=== PATIENT | male | born 1985 | race Caucasian/White ===

== ENCOUNTER 2016-09-16 15:42 | Emergency (ER) | payer MEDICAID ==
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
[2016-09-16 16:29] LABS: % IMMATURE GRANULYOCYTES 0.4 % (0.0-1.1); ABSOLUTE IMMATURE GRANULOCYTES 0.04 10^3/uL (0.00-0.10); ADD DIFF? NO; ADD MORPH? NO; ADD SCAN? NO; ATYPICAL LYMPHOCYTE FLAG 10 (0-99); FRAGMENT RBC FLAG 0 (0-99); HEMATOCRIT 50.8 % (40.0-51.0); HEMOGLOBIN 18.2 g/dL (13.7-17.5); LEFT SHIFT FLG 0 (0-99); LIPEMIA HEMOLYSIS FLAG 90 (0-99); MEAN CELL HEMOGLOBIN 33.6 pg (27.9-34.1); MEAN CELL HEMOGLOBIN CONCENTR. 35.8 g/dL (32.4-36.7); MEAN CELL VOLUME 93.9 fL (81.5-99.8); MEAN PLATELET VOLUME 10.4 fL (8.7-11.7); PLATELET CLUMPS FLAG 10 (0-99); PLATELET COUNT 298 10^3/uL (150-400); RED BLOOD CELL COUNT 5.41 10^6/uL (4.40-6.38); RED CELL DISTRIBUTION WIDTH 12.6 % (11.5-15.2)
[2016-09-16 16:42] LABS: ANION GAP 19 mEq/L (8-16); CALCIUM 10.7 mg/dL (8.5-10.4); CARBON DIOXIDE 22 mEq/l (22-31); CHLORIDE 100 mEq/L (97-110); CREATININE 0.9 mg/dL (0.7-1.3); ETHANOL SERUM < 10 mg/dL (0-10); GLOMERULAR FILTRATION RATE > 60; GLUCOSE 81 mg/dL (70-100); POTASSIUM 3.9 mEq/L (3.5-5.2); SODIUM 141 mEq/L (134-144)
[2016-09-16] MEDS ORDERED: LORazepam 1 MG TAB PO ONE (16:50)
[2016-09-16 23:34] VITALS: BP 101/60; RESP 14
[2016-09-17 03:35] VITALS: PULSE 61; TEMP 97.9; O2SAT 98
== END 2016-09-17 03:35 ==
DX: F23 Brief psychotic disorder (principal); F17.200 Nicotine dependence, unspecified, uncomplicated
CPT/HCPCS: 80305; G0480

== ENCOUNTER 2016-09-30 14:39 | Emergency (ER) | payer MEDICAID ==
[2016-09-30 14:47] VITALS: TEMP 100
--- NOTE | 2016-09-30 14:55 | CPEKG ---
Heart Rate: 78 RR Interval: 769 P-R Interval: 160 QRSD Interval: 94 QT Interval: 384 QTC Interval: 438 P Grundy: 51 QRS Grundy: 73 T Wave Grundy: 69 EKG Severity - NORMAL ECG - EKG Impression: SINUS RHYTHM Electronically Signed By: Anthony Osman 30-Sep-2016 15:30:48
--- NOTE | 2016-09-30 15:07 | EDPHY ---
H & P Stated Complaint: "chest pressure and palpatations" anxiety, sent by [facility] Time Seen by Provider: 09/30/16 14:51 HPI/ROS: CHIEF COMPLAINT: Chest pressure and anxiety HISTORY OF PRESENT ILLNESS: This is a 31-year-old male presenting to the emergency room complaining of chest pressure and palpitations. Patient states he had a panic attack yesterday starting around 1500, with constant chest pressure which has become intermittent now. Stated he took a walk this morning during this time chest pressure had intensified, pressure is not constant nail but intermittent. Patient states that he was having a difficult conversation with his therapist yesterday and this is what brought on the panic attack. Patient states he started Respiradol this week. Denies any drugs or alcohol REVIEW OF SYSTEMS: Constitutional: No fever chills Eyes: No vision changes ENT: No sore throat Respiratory: Intermittent shortness of breath Cardiac: Chest pressure Gastrointestinal: No nausea vomiting Musculoskeletal: No back pain Skin: No rash Neurological: No headache or dizziness Source: Patient - Personal History Current Tetanus Diphtheria and Acellular Pertussis (TDAP): Yes Tetanus Vaccine Date: 2007 - Medical/Surgical History Hx Asthma: No Hx Chronic Respiratory Disease: No Hx Diabetes: No Hx Cardiac Disease: No Hx Renal Disease: No Hx Cirrhosis: No Hx Alcoholism: No Hx HIV/AIDS: No Hx Splenectomy or Spleen Trauma: No Other PMH: chronic anxiety, bipolar. - Social History Smoking Status: Current every day smoker - Physical Exam Exam: General Appearance: Alert, no distress. Eyes: Pupils equal and round no pallor or injection. ENT, Mouth: Mucous membranes moist. Respiratory: There are no retractions, lungs are clear to auscultation. Cardiovascular: Regular rate and rhythm. Gastrointestinal: Abdomen is soft and nontender, no masses, bowel sounds normal. Neurological: No focal deficits Skin: Warm and dry, no rashes. Musculoskeletal: Neck is supple nontender. Extremities: symmetrical, full range of motion. Psychiatric: Patient is oriented X 3, there is no agitation. Constitutional: Initial Vital Signs Temperature (C) 37.8 C 09/30/16 14:41 Heart Rate 91 09/30/16 14:41 Respiratory Rate 14 09/30/16 14:41 Blood Pressure 104/66 09/30/16 14:41 O2 Sat (%) 97 09/30/16 14:41 O2 Delivery Mode Room Air Allergies/Adverse Reactions: Sulfa (Sulfonamide Antibiotics) Allergy (Verified 09/16/16 15:57) Home Medications: Medication Instructions Recorded LORazepam [Ativan (*)] 0.5 - 1 mg PO Q4 PRN #30 tab 06/01/15 [place] Carbonate [[place] 300 mg PO DAILY #30 cap 06/01/15 Carbonate Cap 300 mg (*)] [place] Carbonate [[place] 600 mg PO HS #60 cap 06/01/15 Carbonate Cap 300 mg (*)] OLANZapine [ZyPREXA 2.5 mg (*)] 15 mg PO HS #30 tab 06/01/15 Latuda 09/16/16 Medical Decision Making ED Course/Re-evaluation: Discussed plan of care: EKG, CBC, Chem 7, troponin, lithium level 1545: Discussed all results with patient, lithium level is subtherapeutic patient has increased his dose this week per therapist 1600: Discharge home---> stable, discussed discharge instructions with patient Differential Diagnosis: Differential diagnosis considered but not limited to [place], abnormal EKG, and suicidal ideation - Data Points Laboratory Results: Laboratory Results 09/30/16 15:10 09/30/16 15:10 09/30/16 09/30/16 15:10 15:10 WBC 7.82 10^3/uL 10^3/uL (3.80-9.50) RBC 4.30 10^6/uL L 10^6/uL (4.40-6.38) Hgb 14.2 g/dL g/dL (13.7-17.5) Hct 41.2 % % (40.0-51.0) MCV 95.8 fL fL (81.5-99.8) MCH 33.0 pg pg (27.9-34.1) MCHC 34.5 g/dL g/dL (32.4-36.7) RDW 13.0 % % (11.5-15.2) Plt Count 259 10^3/uL 10^3/uL (150-400) MPV 9.5 fL fL (8.7-11.7) Neut % (Auto) 64.8 % % (39.3-74.2) Lymph % (Auto) 26.6 % % (15.0-45.0) Garza % (Auto) 5.5 % % (4.5-13.0) Eos % (Auto) 2.3 % % (0.6-7.6) Baso % (Auto) 0.5 % % (0.3-1.7) Nucleat RBC Rel Count 0.0 % % (0.0-0.2) Absolute Neuts (auto) 5.07 10^3/uL 10^3/uL (1.70-6.50) Absolute Lymphs (auto) 2.08 10^3/uL 10^3/uL (1.00-3.00) Absolute Monos (auto) 0.43 10^3/uL 10^3/uL (0.30-0.80) Absolute Eos (auto) 0.18 10^3/uL 10^3/uL (0.03-0.40) Absolute Basos (auto) 0.04 10^3/uL 10^3/uL (0.02-0.10) Absolute Nucleated RBC 0.00 10^3/uL 10^3/uL (0-0.01) Immature Gran % 0.3 % % (0.0-1.1) Immature Gran # 0.02 10^3/uL 10^3/uL (0.00-0.10) Sodium 142 mEq/L mEq/L (134-144) Potassium 3.8 mEq/L mEq/L (3.5-5.2) Chloride 107 mEq/L mEq/L (97-110) Carbon Dioxide 25 mEq/l mEq/l (22-31) Anion Gap 10 mEq/L mEq/L (8-16) BUN 14 mg/dL mg/dL (7-23) Creatinine 0.7 mg/dL mg/dL (0.7-1.3) Estimated GFR > 60 Glucose 83 mg/dL mg/dL (70-100) Calcium 9.5 mg/dL mg/dL (8.5-10.4) Troponin I < 0.012 ng/mL ng/mL (0-0.034) [place] 0.5 mEq/L L mEq/L (0.6-1.2) Departure - Departure Disposition: Home, Routine, Self-Care Clinical Impression: Panic attack as reaction to stress Condition: Good Instructions: Panic Attack (ED) Additional Instructions: 1. Your lithium level today was 0.5 today, it will take a while for your level to come up since you have increased her dose 2. When you feel you are in a stressful environment step away from the triggered attempt calming relaxation 3. Follow up with her therapist tomorrow Referrals: NONE *PRIMARY CARE P,. [Primary Care Provider] - As per Instructions [facility],. [Clinic] - As per Instructions
[2016-09-30 15:29] LABS: % IMMATURE GRANULYOCYTES 0.3 % (0.0-1.1); ABSOLUTE IMMATURE GRANULOCYTES 0.02 10^3/uL (0.00-0.10); ADD DIFF? NO; ADD MORPH? NO; ADD SCAN? NO; ANION GAP 10 mEq/L (8-16); ATYPICAL LYMPHOCYTE FLAG 20 (0-99); CALCIUM 9.5 mg/dL (8.5-10.4); CARBON DIOXIDE 25 mEq/l (22-31); CHLORIDE 107 mEq/L (97-110); CREATININE 0.7 mg/dL (0.7-1.3); FRAGMENT RBC FLAG 30 (0-99); GLOMERULAR FILTRATION RATE > 60; GLUCOSE 83 mg/dL (70-100); HEMATOCRIT 41.2 % (40.0-51.0); HEMOGLOBIN 14.2 g/dL (13.7-17.5); LEFT SHIFT FLG 0 (0-99); LIPEMIA HEMOLYSIS FLAG 90 (0-99); LITHIUM 0.5 mEq/L (0.6-1.2); MEAN CELL HEMOGLOBIN CONCENTR. 34.5 g/dL (32.4-36.7); MEAN CELL VOLUME 95.8 fL (81.5-99.8); MEAN PLATELET VOLUME 9.5 fL (8.7-11.7); PLATELET CLUMPS FLAG 10 (0-99); PLATELET COUNT 259 10^3/uL (150-400); POTASSIUM 3.8 mEq/L (3.5-5.2); SODIUM 142 mEq/L (134-144)
[2016-09-30 15:40] LABS: TROPONIN I < 0.012 ng/mL (0-0.034)
[2016-09-30] MEDS ORDERED: LORazepam 1 MG TAB PO ONE (16:08)
[2016-09-30 16:13] VITALS: BP 100/76; PULSE 75; RESP 16; O2SAT 96
== END 2016-09-30 16:30 | disposition home or self-care (01) ==
DX: F43.0 Acute stress reaction (principal); F17.200 Nicotine dependence, unspecified, uncomplicated

== ENCOUNTER 2016-10-27 13:56 | Emergency (ER) | payer MEDICAID ==
--- NOTE | 2016-10-27 13:54 | EDPHY ---
H & P Time Seen by Provider: 10/27/16 13:53 HPI/ROS: CHIEF COMPLAINT: M1 hold HISTORY OF PRESENT ILLNESS: This patient is a 31 year old male with history of bipolar disorder arriving by EMS from [facility] on an M1 hold. He reports that he presented voluntarily to [facility] because he was looking for a place to sleep. He is concerned that he has not been able to find housing or get his medications refilled (300mg lithium TID, 1mg risperidone QID , 1mg Ativan TID PRN). He reports he has been feeling "unstable" and "not grounded." He reports that he has chronic auditory hallucinations: "I hear voices; it's been happening for a long time." He denies suicidal ideation or thoughts of self harm. No homicidal ideation. REVIEW OF SYSTEMS: Constitutional: No fever, no chills Eyes: No visual changes ENT: No sore throat Respiratory: No cough, no shortness of breath Cardiac: No chest pain Gastrointestinal: No nausea, no vomiting, no abdominal pain Genitourinary: No hematuria, no dysuria Musculoskeletal: No leg pain or swelling Skin: No rash Neurological: No headache, no numbness, no weakness Psychiatric: As in HPI (Yarely Ferrera) Past Medical/Surgical History: Bipolar disorder (Yarely Ferrera) Social History: Occasional alcohol. Smokes regularly. Denies illicit drug use. (Yarely Ferrera) Physical Exam: General Appearance: Alert, no distress Eyes: Pupils equal and round, no conjunctival pallor or injection ENT, Mouth: Mucous membranes moist Neck: Normal inspection Respiratory: Lungs are clear to auscultation Cardiovascular: Regular rate and rhythm Gastrointestinal: Abdomen is soft and non- tender Neurological: A&O, nonfocal, normal gait Skin: Warm and dry, no rash Extremities: Nontender, no pedal edema Psychiatric: Mood and affect normal (Yarely Ferrera) Constitutional: Initial Vital Signs Temperature (C) 36.4 C 10/27/16 13:57 Heart Rate 63 10/27/16 13:57 Respiratory Rate 12 10/27/16 13:57 Blood Pressure 107/61 10/27/16 13:57 O2 Sat (%) 98 10/27/16 13:57 O2 Delivery Mode Room Air Allergies/Adverse Reactions: Sulfa (Sulfonamide Antibiotics) Allergy (Verified 09/16/16 15:57) Home Medications: Medication Instructions Recorded LORazepam [Ativan (*)] 0.5 - 1 mg PO Q4 PRN #30 tab 06/01/15 [place] Carbonate [[place] 300 mg PO DAILY #30 cap 06/01/15 Carbonate Cap 300 mg (*)] [place] Carbonate [[place] 600 mg PO HS #60 cap 06/01/15 Carbonate Cap 300 mg (*)] OLANZapine [ZyPREXA 2.5 mg (*)] 15 mg PO HS #30 tab 06/01/15 Latuda 09/16/16 Medical Decision Making ED Course/Re-evaluation: This 31-year-old male with history of bipolar disorder presents via EMS from [facility] on M1 Hold. He denies suicidal or homicidal ideation or intent to harm himself or others. He reports chronic auditory hallucinations at baseline. He has had difficulty establishing stable living situation or filling his medications and presents today because of difficulty caring for himself. He is calm, conversant, and agreeable upon presentation. He has no additional medical complaints. Plan for labs and UA for medical clearance prior to mental health evaluation. Labs obtained and are unremarkable. Tox screen is negative apart from [place]. The patient is medically cleared as of 1734. Will proceed with mental health evaluation. 9pm--signed over to Dr. Steen at shift change. (Yarely Ferrera) Differential Diagnosis: The differential diagnosis for the patient's auditory hallucinations included but was not limited to bipolar disorder, functional and major depression, situational depression, medication side effect, drugs, and alcohol abuse. (Yarely Ferrera) Other Provider: Care assumed at 9:[address] Ferrera with plan for psych placement. Discharge summary dated 06/01/2015 personally reviewed shows diagnosis per Dr. Jana Clements of schizoaffective disorder. Transferred to [facility] signed by Dr. Ferrera. (Nickolas Steen) - Data Points Laboratory Results: Laboratory Results 10/27/16 14:20 10/27/16 14:20 10/27/16 10/27/16 10/27/16 15:35 14:20 14:20 WBC RBC Hgb Hct MCV MCH MCHC RDW Plt Count MPV Neut % (Auto) Lymph % (Auto) [place] % (Auto) Eos % (Auto) Baso % (Auto) Nucleat RBC Rel Count Absolute Neuts (auto) Absolute Lymphs (auto) Absolute Monos (auto) Absolute Eos (auto) Absolute Basos (auto) Absolute Nucleated RBC Immature Gran % Immature Gran # Sodium 143 mEq/L mEq/L (134-144) Potassium 4.0 mEq/L mEq/L (3.5-5.2) Chloride 107 mEq/L mEq/L (97-110) Carbon Dioxide 26 mEq/l mEq/l (22-31) Anion Gap 10 mEq/L mEq/L (8-16) BUN 13 mg/dL mg/dL (7-23) Creatinine 0.8 mg/dL mg/dL (0.7-1.3) Estimated GFR > 60 Glucose 97 mg/dL mg/dL (70-100) Calcium 9.2 mg/dL mg/dL (8.5-10.4) Urine Opiates Screen NEGATIVE (NEGATIVE) Urine Barbiturates NEGATIVE (NEGATIVE) Ur Phencyclidine Scrn NEGATIVE (NEGATIVE) Ur Amphetamine Screen NEGATIVE (NEGATIVE) U Benzodiazepines Scrn NEGATIVE (NEGATIVE) [place] < 0.2 mEq/L L mEq/L (0.6-1.2) Urine Cocaine Screen NEGATIVE (NEGATIVE) U Marijuana (THC) Screen NEGATIVE (NEGATIVE) Ethyl Alcohol < 10 mg/dL mg/dL (0-10) 10/27/16 14:20 WBC 6.47 10^3/uL 10^3/uL (3.80-9.50) RBC 4.35 10^6/uL L 10^6/uL (4.40-6.38) Hgb 14.3 g/dL g/dL (13.7-17.5) Hct 42.1 % % (40.0-51.0) MCV 96.8 fL fL (81.5-99.8) MCH 32.9 pg pg (27.9-34.1) MCHC 34.0 g/dL g/dL (32.4-36.7) RDW 13.1 % % (11.5-15.2) Plt Count 279 10^3/uL 10^3/uL (150-400) MPV 9.8 fL fL (8.7-11.7) Neut % (Auto) 55.1 % % (39.3-74.2) Lymph % (Auto) 37.7 % % (15.0-45.0) [place] % (Auto) 3.9 % L % (4.5-13.0) Eos % (Auto) 2.5 % % (0.6-7.6) Baso % (Auto) 0.5 % % (0.3-1.7) Nucleat RBC Rel Count 0.0 % % (0.0-0.2) Absolute Neuts (auto) 3.57 10^3/uL 10^3/uL (1.70-6.50) Absolute Lymphs (auto) 2.44 10^3/uL 10^3/uL (1.00-3.00) Absolute Monos (auto) 0.25 10^3/uL L 10^3/uL (0.30-0.80) Absolute Eos (auto) 0.16 10^3/uL 10^3/uL (0.03-0.40) Absolute Basos (auto) 0.03 10^3/uL 10^3/uL (0.02-0.10) Absolute Nucleated RBC 0.00 10^3/uL 10^3/uL (0-0.01) Immature Gran % 0.3 % % (0.0-1.1) Immature Gran # 0.02 10^3/uL 10^3/uL (0.00-0.10) Sodium Potassium Chloride Carbon Dioxide Anion Gap BUN Creatinine Estimated GFR Glucose Calcium Urine Opiates Screen Urine Barbiturates Ur Phencyclidine Scrn Ur Amphetamine Screen U Benzodiazepines Scrn [place] Urine Cocaine Screen U Marijuana (THC) Screen Ethyl Alcohol Departure - Departure Disposition: Other Psych, Not Jennifer Clinical Impression: Acute psychosis, Schizoaffective disorder Condition: Good Referrals: Patient,NotPresent [Unknown] - As per Instructions Report Scribed for: Yarely Ferrera Report Scribed by: Lidya Pink Date of Report: 10/27/16 Time of Report: 13:54 Physician Review and Approval Statement: 10/27/16 13:54 Portions of this note were transcribed by a chief medical technologist. I personally performed a history, physical exam, medical decision making, and confirmed accuracy of information the transcribed note. (Yarely Ferrera)
[2016-10-27 14:33] LABS: % IMMATURE GRANULYOCYTES 0.3 % (0.0-1.1); ABSOLUTE IMMATURE GRANULOCYTES 0.02 10^3/uL (0.00-0.10); ADD DIFF? NO; ADD MORPH? NO; ADD SCAN? NO; ATYPICAL LYMPHOCYTE FLAG 20 (0-99); FRAGMENT RBC FLAG 0 (0-99); HEMATOCRIT 42.1 % (40.0-51.0); HEMOGLOBIN 14.3 g/dL (13.7-17.5); LEFT SHIFT FLG 0 (0-99); LIPEMIA HEMOLYSIS FLAG 90 (0-99); MEAN CELL HEMOGLOBIN 32.9 pg (27.9-34.1); MEAN CELL VOLUME 96.8 fL (81.5-99.8); MEAN PLATELET VOLUME 9.8 fL (8.7-11.7); PLATELET CLUMPS FLAG 0 (0-99); PLATELET COUNT 279 10^3/uL (150-400); RED BLOOD CELL COUNT 4.35 10^6/uL (4.40-6.38); RED CELL DISTRIBUTION WIDTH 13.1 % (11.5-15.2)
[2016-10-27 14:50] LABS: ANION GAP 10 mEq/L (8-16); CALCIUM 9.2 mg/dL (8.5-10.4); CARBON DIOXIDE 26 mEq/l (22-31); CHLORIDE 107 mEq/L (97-110); CREATININE 0.8 mg/dL (0.7-1.3); ETHANOL SERUM < 10 mg/dL (0-10); GLOMERULAR FILTRATION RATE > 60; GLUCOSE 97 mg/dL (70-100); SODIUM 143 mEq/L (134-144)
[2016-10-27 16:31] VITALS: RESP 14
[2016-10-27 16:42] LABS: LITHIUM < 0.2 mEq/L (0.6-1.2)
[2016-10-27 21:36] VITALS: BP 102/49; PULSE 49; TEMP 97.9; O2SAT 96
== END 2016-10-27 21:46 ==
LOC: EDUNIT#
DX: F25.9 Schizoaffective disorder, unspecified (principal); F29 Unspecified psychosis not due to a substance or known physiological condition; F17.200 Nicotine dependence, unspecified, uncomplicated
CPT/HCPCS: 80305; G0480

== ENCOUNTER 2017-01-28 19:03 | Inpatient (IN) | payer MEDICAID ==
[2017-01-28 19:37] LABS: % IMMATURE GRANULYOCYTES 0.1 % (0.0-1.1); ABSOLUTE IMMATURE GRANULOCYTES 0.01 10^3/uL (0.00-0.10); ADD DIFF? NO; ADD MORPH? NO; ADD SCAN? NO; ATYPICAL LYMPHOCYTE FLAG 10 (0-99); FRAGMENT RBC FLAG 0 (0-99); HEMATOCRIT 40.7 % (40.0-51.0); HEMOGLOBIN 14.6 g/dL (13.7-17.5); LEFT SHIFT FLG 0 (0-99); LIPEMIA HEMOLYSIS FLAG 90 (0-99); MEAN CELL HEMOGLOBIN 32.6 pg (27.9-34.1); MEAN CELL HEMOGLOBIN CONCENTR. 35.9 g/dL (32.4-36.7); MEAN CELL VOLUME 90.8 fL (81.5-99.8); MEAN PLATELET VOLUME 9.6 fL (8.7-11.7); PLATELET CLUMPS FLAG 0 (0-99); PLATELET COUNT 264 10^3/uL (150-400); RED BLOOD CELL COUNT 4.48 10^6/uL (4.40-6.38); RED CELL DISTRIBUTION WIDTH 12.4 % (11.5-15.2)
[2017-01-28 19:57] LABS: ANION GAP 12 mEq/L (8-16); CALCIUM 9.7 mg/dL (8.5-10.4); CARBON DIOXIDE 22 mEq/l (22-31); CHLORIDE 96 mEq/L (97-110); CREATININE 0.7 mg/dL (0.7-1.3); ETHANOL SERUM < 10 mg/dL (0-10); GLOMERULAR FILTRATION RATE > 60; GLUCOSE 88 mg/dL (70-100); POTASSIUM 3.5 mEq/L (3.5-5.2); SODIUM 130 mEq/L (134-144)
[2017-01-28] MEDS ORDERED: MIDAZOLAM 2 MG/2 ML VIAL ONE (20:24)
[2017-01-28 21:28] LABS: COLOR COLORLESS; LEUKOCYTE ESTERASE,URINE NEGATIVE (NEGATIVE); NITRITE,URINE NEGATIVE (NEGATIVE)
--- NOTE | 2017-01-29 01:26 | EDPHY ---
H & P Stated Complaint: M1 hold - Personal History Tetanus Vaccine Date: 2007 - Medical/Surgical History Hx Asthma: No Hx Chronic Respiratory Disease: No Hx Diabetes: No Hx Cardiac Disease: No Hx Renal Disease: No Hx Cirrhosis: No Hx Alcoholism: No Hx HIV/AIDS: No Hx Splenectomy or Spleen Trauma: No Other PMH: chronic anxiety, bipolar. - Social History Smoking Status: Current every day smoker HPI/ROS: Chief complaint: Mental health hold History of present illness: This is a 31-year-old male brought to the emergency department by EMS, accompanied by police who have placed him on a mental health hold. Patient apparently has been living out of a storage unit. He was found living there and evicted. According to EMS report one of his case workers was able to find him and felt he was unable to care for himself. EMS and police were summoned. It was determined at that time that the patient was gravely disabled and police placed him on the M1 hold. On my evaluation patient states he feels well. He denies illness or injury. He denies suicidal or homicidal ideation. He has no complaints. Review of systems: A 10 point review of systems was obtained and other than described above was negative (Dann Cameron) - Physical Exam Exam: General Appearance: Alert, nontoxic. Eyes: Pupils equal and round no pallor or injection. ENT, Mouth: Mucous membranes moist. Respiratory: There are no retractions, lungs are clear to auscultation. Cardiovascular: Regular rate and rhythm. Gastrointestinal: Abdomen is soft and nontender, no masses, bowel sounds normal. Neurological: Alert. Strength and sensation intact and symmetrical. Skin: Warm and dry, no rashes. Musculoskeletal: Neck is supple nontender. Extremities are symmetrical, full range of motion. Psychiatric: There is no agitation. (Dann Cameron) Constitutional: Initial Vital Signs Temperature (C) 36.5 C 01/28/17 19:43 Heart Rate 89 01/28/17 19:43 Respiratory Rate 20 01/28/17 19:43 Blood Pressure 113/79 01/28/17 19:43 O2 Sat (%) 94 01/28/17 19:43 O2 Delivery Mode Room Air Allergies/Adverse Reactions: Sulfa (Sulfonamide Antibiotics) Allergy (Verified 01/28/17 19:42) Home Medications: Medication Instructions Recorded LORazepam [Ativan (*)] 0.5 - 1 mg PO Q4 PRN #30 tab 06/01/15 Orem Carbonate [Orem 300 mg PO DAILY #30 cap 06/01/15 Carbonate Cap 300 mg (*)] Orem Carbonate [Orem 600 mg PO HS #60 cap 06/01/15 Carbonate Cap 300 mg (*)] OLANZapine [ZyPREXA 2.5 mg (*)] 15 mg PO HS #30 tab 06/01/15 Latuda 09/16/16 Medical Decision Making ED Course/Re-evaluation: Patient seen under the supervision of my secondary supervising physician Dr. Beto Madrigal. Patient presents on a mental health hold for being gravely disabled. He is medically evaluated and cleared for psychiatric evaluation. The psychiatric team feel he warrants inpatient admission. Placement is pending at time of dictation. Care of patient is turned over to my attending physician Dr. Vy Bolden at end of shift. (Dann Cameron) 6:40 a.m.- The patient has remained stable during my shift. He has been accepted to [address] [place] [address] Gallardo[address] We will transfer the patient later in the day today. I have completed the EMTALA form. (Vy Bolden) Differential Diagnosis: Included but not limited to depression, bipolar, schizophrenia, substance abuse (Dann Cameron) - Data Points Laboratory Results: Laboratory Results 01/28/17 19:30 01/28/17 19:30 01/28/17 01/28/17 01/28/17 19:30 19:30 19:13 WBC 9.02 10^3/uL 10^3/uL (3.80-9.50) RBC 4.48 10^6/uL 10^6/uL (4.40-6.38) Hgb 14.6 g/dL g/dL (13.7-17.5) Hct 40.7 % % (40.0-51.0) MCV 90.8 fL fL (81.5-99.8) MCH 32.6 pg pg (27.9-34.1) MCHC 35.9 g/dL g/dL (32.4-36.7) RDW 12.4 % % (11.5-15.2) Plt Count 264 10^3/uL 10^3/uL (150-400) MPV 9.6 fL fL (8.7-11.7) Neut % (Auto) 56.6 % % (39.3-74.2) Lymph % (Auto) 35.0 % % (15.0-45.0) Dunn % (Auto) 5.7 % % (4.5-13.0) Eos % (Auto) 2.3 % % (0.6-7.6) Baso % (Auto) 0.3 % % (0.3-1.7) Nucleat RBC Rel Count 0.0 % % (0.0-0.2) Absolute Neuts (auto) 5.10 10^3/uL 10^3/uL (1.70-6.50) Absolute Lymphs (auto) 3.16 10^3/uL H 10^3/uL (1.00-3.00) Absolute Monos (auto) 0.51 10^3/uL 10^3/uL (0.30-0.80) Absolute Eos (auto) 0.21 10^3/uL 10^3/uL (0.03-0.40) Absolute Basos (auto) 0.03 10^3/uL 10^3/uL (0.02-0.10) Absolute Nucleated RBC 0.00 10^3/uL 10^3/uL (0-0.01) Immature Gran % 0.1 % % (0.0-1.1) Immature Gran # 0.01 10^3/uL 10^3/uL (0.00-0.10) Sodium 130 mEq/L L mEq/L (134-144) Potassium 3.5 mEq/L mEq/L (3.5-5.2) Chloride 96 mEq/L L mEq/L (97-110) Carbon Dioxide 22 mEq/l mEq/l (22-31) Anion Gap 12 mEq/L mEq/L (8-16) BUN 9 mg/dL mg/dL (7-23) Creatinine 0.7 mg/dL mg/dL (0.7-1.3) Estimated GFR > 60 Glucose 88 mg/dL mg/dL (70-100) Calcium 9.7 mg/dL mg/dL (8.5-10.4) Urine Color COLORLESS Urine Appearance CLEAR Urine pH 7.0 (5.0-7.5) Ur Specific [place] 1.002 (1.002-1.030) Urine Protein NEGATIVE (NEGATIVE) Urine Ketones NEGATIVE (NEGATIVE) Urine Blood NEGATIVE (NEGATIVE) Urine Nitrate NEGATIVE (NEGATIVE) Urine Bilirubin NEGATIVE (NEGATIVE) Urine Urobilinogen NEGATIVE EU EU (0.2-1.0) Ur Leukocyte Esterase NEGATIVE (NEGATIVE) Urine Glucose NEGATIVE (NEGATIVE) Urine Opiates Screen Urine Barbiturates Ur Phencyclidine Scrn Ur Amphetamine Screen U Benzodiazepines Scrn Urine Cocaine Screen U Marijuana (THC) Screen Ethyl Alcohol < 10 mg/dL mg/dL (0-10) 01/28/17 19:13 WBC RBC Hgb Hct MCV MCH MCHC RDW Plt Count MPV Neut % (Auto) Lymph % (Auto) Dunn % (Auto) Eos % (Auto) Baso % (Auto) Nucleat RBC Rel Count Absolute Neuts (auto) Absolute Lymphs (auto) Absolute Monos (auto) Absolute Eos (auto) Absolute Basos (auto) Absolute Nucleated RBC Immature Gran % Immature Gran # Sodium Potassium Chloride Carbon Dioxide Anion Gap BUN Creatinine Estimated GFR Glucose Calcium Urine Color Urine Appearance Urine pH Ur Specific [place] Urine Protein Urine Ketones Urine Blood Urine Nitrate Urine Bilirubin Urine Urobilinogen Ur Leukocyte Esterase Urine Glucose Urine Opiates Screen NEGATIVE (NEGATIVE) Urine Barbiturates NEGATIVE (NEGATIVE) Ur Phencyclidine Scrn NEGATIVE (NEGATIVE) Ur Amphetamine Screen NEGATIVE (NEGATIVE) U Benzodiazepines Scrn NEGATIVE (NEGATIVE) Urine Cocaine Screen NEGATIVE (NEGATIVE) U Marijuana (THC) Screen NEGATIVE (NEGATIVE) Ethyl Alcohol Departure - Departure Disposition: [facility] IP Clinical Impression: Acute psychosis Referrals: Patient,NotPresent [Primary Care Provider] - As per Instructions
--- NOTE | 2017-01-29 14:45 | PDGENHP ---
History and Physical - Chief Complaint Acute fatigue - History of Present Illness PCP: None Primary mental health provider: [facility], patient reports that his previous provider has retired HPI: 31-year-old male presents with acute fatigue with onset of symptoms several days ago and duration persistent thereafter. The patient reports that his fatigue has been exacerbated by poor night's sleep, having to move between sleeping in containers, homeless shelters, [place]. The patient reports that he has no stable means of retirement. Reports some associated pain located in his posterior neck and upper back as well as lateral aspect of his right hand. The pain in his neck and back has been present for several years, he believes it is exacerbated by sleeping on hard surfaces. He denies any acute injury to this area. He does endorse, however, that he recently struck his right hand on a metal surface, and this resulted in immediate pain. The pain is exacerbated by gripping objects as well as pressure. The patient has not been using any medications for this issue, he believes that medications do not have healing properties. Instead, he relies on herbal remedies from a local herbal remedy store. He also believes in healing properties of water and some light, and he reports he has been drinking upwards 2 gal of water per day. He reports resultant polyuria, but reports that he is not drinking water out of thirst, but rather out of the desire to remain healthy. It should be noted that the patient was taken into custody after his gas cutter found out that he was unable to care for himself after being evicted from a storage unit. Was placed on an M1 hold and brought to the emergency department. He denied any suicidal ideation or homicidal ideation at the time of presentation. Throughout the course of his hold, he has not been acutely agitated. History Information - Allergies/Home Medication List Allergies/Adverse Reactions: Sulfa (Sulfonamide Antibiotics) Allergy (Verified 01/28/17 19:42) Home Medications: NK [No Known Home Meds] 01/29/17 [Last Taken Unknown] I have personally reviewed and updated: family history, medical history, social history, surgical history - Past Medical History Additional medical history: Schizoaffective disorder. Chronic neck and back pain - Surgical History Reports: no pertinent surgical hx - Family History Additional family history: no family history of mental health disorders - Social History Smoking Status: Heavy smoker Alcohol Use: Occasionally Drug Use: None Additional social history: patient reports he is homeless, drifting between shoulders between [place] Review of Systems ROS: 10pt was reviewed & negative except for what was stated in HPI & below Constitutional: Reports: other ( general fatigue) Genitourinary: Reports: other ( polyuria and polydipsia) Neurological: Reports: other ( delusional thinking) Physical Exam Temp Pulse Resp BP Pulse Ox 36.8 C 77 16 111/57 L 95 01/29/17 09:30 01/29/17 09:30 01/29/17 09:30 01/29/17 09:30 01/29/17 09:30 Constitutional: no apparent distress, not in pain, unkempt, No uncomfortable Eyes: PERRL, anicteric sclera, EOMI Ears, Nose, Mouth, Throat: moist mucous membranes, hearing normal, poor dentition Cardiovascular: regular rate and rhythym, no murmur, rub, or gallop, No edema Respiratory: no respiratory distress, no rales or rhonchi, clear to auscultation , other ( notably poor inspiratory effort) Gastrointestinal: normoactive bowel sounds, soft, non-tender abdomen, no palpable masses Genitourinary: no bladder fullness, no bladder tenderness Skin: other ( somewhat dirty skin, no erythema or induration over the lateral aspect of the right hand) Musculoskeletal: other ( full range of motion of his neck without any pain elicited, no tenderness palpation over his thoracic and cervical spine, there is tenderness over the lateral aspect of his 5th MCP on his right hand, full range of motion of his right wrist as well as right 5th digit without any pain elicited) Neurologic: AAOx3, sensation intact bilaterally, No weakness ( motor strength is 5/5 bilateral upper and lower extremities) Psychiatric: not anxious, other ( good eye contact, delusional thinking, patient is calm, he is not agitated, he does answer coherently to questions) Lab Data & Imaging Review 01/28/17 19:30 01/28/17 19:30 WBC 9.02 10^3/uL (3.80-9.50) 01/28/17 19:30 RBC 4.48 10^6/uL (4.40-6.38) 01/28/17 19:30 Hgb 14.6 g/dL (13.7-17.5) 01/28/17 19:30 Hct 40.7 % (40.0-51.0) 01/28/17 19:30 MCV 90.8 fL (81.5-99.8) 01/28/17 19:30 MCH 32.6 pg (27.9-34.1) 01/28/17 19: MCHC 35.9 g/dL (32.4-36.7) 01/28/17: RDW 12.4 % (11.5-15.2) 01/28/17 19: Plt Count 264 10^3/uL (150-400) 01/28/17 19: MPV 9.6 fL (8.7-11.7) 01/28/17: Neut % (Auto) 56.6 % (39.3-74.2) 01/28/17: Lymph % (Auto) 35.0 % (15.0-45.0) 01/28/17: [place] % (Auto) 5.7 % (4.5-13.0) 01/28/17: Eos % (Auto) 2.3 % (0.6-7.6) 01/28/17: Baso % (Auto) 0.3 % (0.3-1.7) 01/28/17: Nucleat RBC Rel Count 0.0 % (0.0-0.2) 01/28/17: Absolute Neuts (auto) 5.10 10^3/uL (1.70-6.50) 01/28/17: Absolute Lymphs (auto) 3.16 10^3/uL (1.00-3.00) H 01/28/17: Absolute Monos (auto) 0.51 10^3/uL (0.30-0.80) 01/28/17: Absolute Eos (auto) 0.21 10^3/uL (0.03-0.40) 01/28/17: Absolute Basos (auto) 0.03 10^3/uL (0.02-0.10) 01/28/17 19: Absolute Nucleated RBC 0.00 10^3/uL (0-0.01) 01/28/17 19:30 Immature Gran % 0.1 % (0.0-1.1) 01/28/17 19:30 Immature Gran # 0.01 10^3/uL (0.00-0.10) 01/28/17 19:30 Sodium 130 mEq/L (134-144) L 01/28/17 19:30 Potassium 3.5 mEq/L (3.5-5.2) 01/28/17 19:30 Chloride 96 mEq/L (97-110) L 01/28/17 19:30 Carbon Dioxide 22 mEq/l (22-31) 01/28/17 19:30 Anion Gap 12 mEq/L (8-16) 01/28/17 19:30 BUN 9 mg/dL (7-23) 01/28/17 19:30 Creatinine 0.7 mg/dL (0.7-1.3) 01/28/17 19:30 Estimated GFR > 60 01/28/17 19:30 Glucose 88 mg/dL (70-100) 01/28/17 19:30 Calcium 9.7 mg/dL (8.5-10.4) 01/28/17 19:30 Urine Color COLORLESS 01/28/17 19:13 Urine Appearance CLEAR 01/28/17 19:13 Urine pH 7.0 (5.0-7.5) 01/28/17 19:13 Ur Specific [place] 1.002 (1.002-1.030) 01/28/17 19:13 Urine Protein NEGATIVE (NEGATIVE) 01/28/17 19:13 Urine Ketones NEGATIVE (NEGATIVE) 01/28/17 19:13 Urine Blood NEGATIVE (NEGATIVE) 01/28/17 19:13 Urine Nitrate NEGATIVE (NEGATIVE) 01/28/17 19:13 Urine Bilirubin NEGATIVE (NEGATIVE) 01/28/17 19:13 Urine Urobilinogen NEGATIVE EU (0.2-1.0) 01/28/17 19:13 Ur Leukocyte Esterase NEGATIVE (NEGATIVE) 01/28/17 19:13 Urine Glucose NEGATIVE (NEGATIVE) 01/28/17 19:13 Urine Opiates Screen NEGATIVE (NEGATIVE) 01/28/17 19:13 Urine Barbiturates NEGATIVE (NEGATIVE) 01/28/17 19:13 Ur Phencyclidine Scrn NEGATIVE (NEGATIVE) 01/28/17 19:13 Ur Amphetamine Screen NEGATIVE (NEGATIVE) 01/28/17 19:13 U Benzodiazepines Scrn NEGATIVE (NEGATIVE) 01/28/17 19:13 Urine Cocaine Screen NEGATIVE (NEGATIVE) 01/28/17 19:13 U Marijuana (THC) Screen NEGATIVE (NEGATIVE) 01/28/17 19:13 Ethyl Alcohol < 10 mg/dL (0-10) 01/28/17 19:30 Assessment & Plan Assessment: 31-year-old male presents with grave disability and inability to care for self in the setting of schizoaffective disorder Plan: 1. Schizoaffective disorder. Acute worsening of chronic condition, reviewed outside records including discharge summary by [facility] from 2014, characterizing the patient as having schizoaffective disorder with re- initiation of medications including lithium 300 mg in the morning, 600 mg at night, Lantus 15 15 mg at night, Ativan as needed for sleep, discharged to [facility] -per patient's report, he has not been taking any of his psychiatric medications , he cites custodial of his mental health provider from [facility] as the reason -defer medical psychiatric management to the primary psych team 2. Hand pain. Acute, new problem this provider, no further workup indicated. Most likely secondary to bruising of the muscle adjacent to the 5th MCP, but he may have a small hairline fracture given the physical exam -that being said, conservative management with immobilization would be the treatment of choice, regardless of whether he has a hairline fracture, and I am not recommending imaging, recommending splint for the affected area at this time -discussed with Dr. Marva Gallardo, I have recommended to her that they obtain a splint from 4th floor inpatient rehab -I have offered anti-inflammatory medications to the patient, he has declined 3. Hyponatremia. Acute, new problem this provider, no further workup indicated. Most likely secondary to primary polydipsia as the patient reports that he drinks upwards of 2 gal of free water per day - I do not suspect that this water consumption is related to lithium use, as the patient is currently not using lithium - I recommended 2.0 L per day free water restriction, to simply modify the patient's fluid intake to a more reasonable level and then patient's serum sodium level can be rechecked in several days -please contact Dr. Geraldo Manuel if further guidance is required depending on patient's repeat sodium level several days from now -his free water restriction can certainly be tightened, and urine studies could certainly be sent, but I believe that this is the most likely etiology of his issue at that time and this intervention is most likely to result in the least agitation from the patient -as his underlying mental health issues becomes more stabilized, he may be more amenable to not consuming some much water, given he has delusional beliefs about the amount he needs to consume daily 4. Tobacco use disorder. The patient is amenable to nicotine gum, will order Hospital Medicine service will sign off on this patient, if further concerns arise, please contact Dr. Geraldo Manuel.
[2017-01-29] MEDS ORDERED: NICOTINE POLACRILEX 2 MG GUM B PRN (14:55)
[2017-01-29] MEDS ORDERED: MAG HYDROX/AL HYDROX/SIMETH 30 ML UDCUP PO PRN (16:44)
[2017-01-29] MEDS ORDERED: OLANZapine DISINTEGR 10 MG TAB PO PRN (16:44)
[2017-01-29] MEDS ORDERED: MAGNESIUM HYDROXIDE 30 ML UDCUP PO PRN (16:44)
[2017-01-29] MEDS ORDERED: LORazepam 0.5 MG TAB PO PRN (16:44)
[2017-01-29] MEDS ORDERED: ACETAMINOPHEN 325 MG TAB PO PRN (16:44)
[2017-01-29] MEDS ORDERED: OLANZapine DISINTEGR 5 MG TAB PO PRN (16:52)
--- NOTE | 2017-01-29 19:03 | SOAPPROG ---
SOAP Progress Note Assessment/Plan: Assessment: 31 CM with hx BMD admitted on M1 for grave disability, off medications for several months 01/29/17 15:53 Pt records reviewed and pt interviewed. Also spoke with hospitalist about medical issues. pt denied drugs/etoh, no THC in several months, Utox neg. Allows ROIs, feels he just needs rest, relaxation, good meals, and help with housing, and declines any offer of psychotropic medications. taking notes during interview, then gives MD paper on which he has drawn several hearts and written "check my records". noted thin, disheveled with unwashed hair, nml speech rate/vol. mood "a little frustrated", affect controlled/calm. Pt denied any SI/HI. +rambling with grandiosity, vague with responses to whether he experiences any AH/vh, +circumferential, tangential often answering questions with questions and speculations. i/j impaired. cognition intact conversationally. Routine admit orders. prn zyprexa and prn ativan. fluid restriction as ordered. Admission behavioral health dictation to follow. Objective: Vital Signs Temp Pulse Resp BP Pulse Ox 36.8 C 77 16 111/57 L 95 01/29/17 09:30 01/29/17 09:30 01/29/17 09:30 01/29/17 09:30 01/29/17 09:30 ICD10 Worksheet Patient Problems: Problems Problem Status Onset Acute psychosis Acute
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
[2017-01-31] MEDS ORDERED: TUBERCULIN (PPD) 5 TU/0.1 ML SYRINGE ID ONE (15:45)
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
[2017-02-01] MEDS ORDERED: MELATONIN 3 MG TAB PO PRN (15:58)
[2017-02-02 06:27] VITALS: BP 88/51; PULSE 55; RESP 14; TEMP 97.7
[2017-02-02 06:29] VITALS: O2SAT 97
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
== END 2017-02-02 11:17 | disposition home or self-care (01) | DRG 885 ==
LOC: EDUNIT# → BBEH 01-29 09:30
PROVIDERS: ADMIT Psychiatry & Neurology Behavioral Neurology & Neuropsychiatry; ATTEND Specialist
DX: F31.2 Bipolar disorder, current episode manic severe with psychotic features (principal); Z72.0 Tobacco use; Z91.14 Patient's other noncompliance with medication regimen; Z59.0 Homelessness; F12.21 Cannabis dependence, in remission
CPT/HCPCS: 80305; G0480; J2250

== ENCOUNTER 2017-03-07 17:59 | Emergency (ER) | payer MEDICAID, OTHER ==
--- NOTE | 2017-03-07 18:21 | EDPHY ---
H & P Time Seen by Provider: 03/07/17 18:08 - Personal History Tetanus Vaccine Date: 2007 - Medical/Surgical History Hx Asthma: No Hx Chronic Respiratory Disease: No Hx Diabetes: No Hx Cardiac Disease: No Hx Renal Disease: No Hx Cirrhosis: No Hx Alcoholism: No Hx HIV/AIDS: No Hx Splenectomy or Spleen Trauma: No Other PMH: Chronic anxiety and Bipolar. Chronic back and neck pain - Social History Smoking Status: Heavy smoker Constitutional: Initial Vital Signs Temperature (C) 36.8 C 03/07/17 18:21 Heart Rate 73 03/07/17 18:21 Respiratory Rate 16 03/07/17 18:21 Blood Pressure 90/64 L 03/07/17 18:21 O2 Sat (%) 98 03/07/17 18:21 O2 Delivery Mode Room Air Allergies/Adverse Reactions: Sulfa (Sulfonamide Antibiotics) Allergy (Verified 01/28/17 19:42) Home Medications: Medication Instructions Recorded NK [No Known Home Meds] 03/07/17 Medical Decision Making ED Course/Re-evaluation: CHIEF COMPLAINT: M1 Hold. HISTORY OF PRESENT ILLNESS: 31 year old male arriving with [facility] on M1 hold for evaluation of suicidal ideation. Per M1 report, he was recently discharged from [facility] but placed on suicide watch by the police department for saying he wanted to kill himself by banging his head on a metal counter. On my evaluation, he denies any suicidal ideation. He denies recent trauma or illness. He has no current complaints. REVIEW OF SYSTEMS: A 10 point review of systems was performed and is negative with the exception of the elements mentioned in the history of present illness. PHYSICAL EXAM: HR, BP, O2 Sat, RR. Temp noted General Appearance: Alert, well hydrated, appropriate, and non-toxic appearing. Head: Atraumatic without scalp tenderness or obvious injury Eyes: Pupils equal, round, reactive to light and accommodation, EOMI, no trauma , no injection. Ears: Clear bilaterally, no perforation, normal landmarks Nose: Atraumatic, no rhinorrhea, clear. Throat: There is no erythema or exudates, no lesions, normal tonsils, mucus membranes moist. Neck: Supple, nontender, no lymphadenopathy. Respiratory: No retractions, no distress, no wheezes, and no accessory muscle use. Lungs are clear to auscultation bilaterally. Cardiovascular: Regular rate and rhythm, no murmurs, rubs, or gallops. Good capillary refill all extremities. Gastrointestinal: Abdomen is soft, nontender, non-distended, no masses, no rebound, no guarding, no peritoneal signs. Musculoskeletal: Normal active ROM of all extremities, atraumatic. Neurological: Alert, appropriate, and interactive. The patient has normal DTRs and non-focal cranial nerves, motor, sensory, and cerebellar exam. Skin: No rashes, good turgor, no nodules on palpation. Past medical history: Chronic anxiety, bipolar, chronic back and neck pain Past surgical history: Noncontributory Family history: Noncontributory Social history: Occasional alcohol. Smokes regularly. Denies illicit drug use. DIFFERENTIAL DIAGNOSIS: The differential diagnosis included but was not limited to alcohol abuse, drugs , bipolar disorder, functional and major depression, situational depression, and medication side effect. MEDICAL DECISION MAKIN31 year old male presents on M1 hold for suicidal ideation. On my evaluation, he has no suicidal or homicidal thoughts. He has no injuries. He has just arrived from [facility] and appears sober, so I do not see a need for drug screen or EtOH at this time. He is mentating well. He spoke with a nurse as well who reports he continues to deny any thoughts of self harm. 18:20 Broke M1 hold. The patient is not currently a danger to himself or others. Plan to discharge patient home in good condition. Follow up and return precautions discussed. The patient is comfortable with this plan. Departure - Departure Disposition: Home, Routine, Self-Care Clinical Impression: Psychiatric disorder Condition: Good Additional Instructions: 1. Follow up with your outpatient psychiatric providers. 2. Return if you have thoughts of harming yourself or others or other concerns. Referrals: [facility] [Clinic] - As per Instructions Report Scribed for: Beto Madrigal Report Scribed by: Shell Jasmine Date of Report: 03/07/17 Time of Report: 20:45
[2017-03-07 18:25] VITALS: BP 90/64; PULSE 73; RESP 16; TEMP 98.2; O2SAT 98
== END 2017-03-07 18:45 | disposition home or self-care (01) ==
DX: F99 Mental disorder, not otherwise specified (principal); F17.200 Nicotine dependence, unspecified, uncomplicated

== ENCOUNTER 2017-03-16 22:19 | Emergency (ER) | payer MEDICAID ==
[2017-03-16 22:28] VITALS: BP 98/75; PULSE 101; RESP 18; TEMP 98.1; O2SAT 94
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
== END 2017-03-17 00:20 | disposition home or self-care (01) ==
DX: S09.90XA Unspecified injury of head, initial encounter (principal); S00.81XA Abrasion of other part of head, initial encounter; S60.512A Abrasion of left hand, initial encounter; F17.200 Nicotine dependence, unspecified, uncomplicated; Y08.89XA Assault by other specified means, initial encounter

== ENCOUNTER 2017-03-21 14:13 | Inpatient (IN) | payer MEDICAID ==
--- NOTE | 2017-03-21 14:32 | EDPHY ---
H & P Smoking Status: Heavy smoker Time Seen by Provider: 03/21/17 14:13 HPI/ROS: CHIEF COMPLAINT: M1 hold HISTORY OF PRESENT ILLNESS: 31-year-old male presents to the emergency department on M1 hold with the [place] [employer]. Patient has a history of schizoaffective disorder and apparently has been noncompliant with his medications. Most recently he called and left a voicemail for his mother stating that he was suicidal. He also asked his brother to keep his "Facebook legacy going" when he was gone. Patient states he is not suicidal or homicidal. He states that he wants to treat with everyone with "love and kindness ". He states that he does not need any medication. No reported trauma. He denies chest pain or difficulty breathing. He does smoke marijuana. He currently has no physical complaints. Denies chest pain or difficulty breathing. Denies abdominal pain. He states that he is hungry. REVIEW OF SYSTEMS: Constitutional: No fever, no chills. Eyes: No double or blurry vision. ENT: No sore throat. Respiratory: No cough, no shortness of breath. Cardiac: No chest pain. Gastrointestinal: No abdominal pain, vomiting or diarrhea. Genitourinary: No dysuria. Musculoskeletal: No neck or back pain. Skin: No rashes. Neurological: No headache. (Amanda Horta) Past Medical/Surgical History: Schizoaffective disorder, bipolar, depression, anxiety, marijuana use (Amanda Horta) Social History: Currently homeless from [place] (Amanda Horta) Physical Exam: General Appearance: Alert, no distress. Looks unkept. Eyes: Pupils equal and round. Extraocular motions are all intact. ENT: Mouth: Mucous membranes moist. Respiratory: No wheezing, rhonchi, or rales, lungs are clear to auscultation. Cardiovascular: Regular rate and rhythm. Gastrointestinal: Abdomen is soft and nontender, no masses, no rebound or guarding, bowel sounds normal. Neurological: Alert and oriented x 3, cranial nerves II through XII grossly intact Skin: Warm and dry, no rashes. Musculoskeletal: Nontender to palpate along the cervical, thoracic or lumbar spine. Neck is supple. Extremities: Full range of motion and no peripheral edema. Psychiatric: Patient is oriented X 3, there is no agitation. (Amanda Horta) Constitutional: Initial Vital Signs Temperature (C) 36.8 C 03/21/17 14:14 Heart Rate 100 03/21/17 14:14 Respiratory Rate 18 03/21/17 14:14 Blood Pressure 124/88 H 03/21/17 14:14 O2 Sat (%) 99 03/21/17 14:14 O2 Delivery Mode Room Air Allergies/Adverse Reactions: Sulfa (Sulfonamide Antibiotics) Allergy (Verified 03/16/17 22:29) Home Medications: Medication Instructions Recorded NK [No Known Home Meds] 03/07/17 Medical Decision Making ED Course/Re-evaluation: The patient has been medically cleared and EPS is aware. The patient has been cooperative. He refused Zyprexa or any other medications. (Amanda Horta) 0559AM: No acute events overnight. Patient has been sleeping. Patient M1 hold for suicidal ideation did so for any a noncompliant with medications. Pending placement. (Zaki uDarte) Differential Diagnosis: Depression including functional and major depression, situational depression, medication side effect, drugs and alcohol abuse. (Amanda Horta) Other Provider: Patient has been accepted to [address] [place] [address] Lu[address] (Richard Zuniga) Care Turn Over: Care will be turned over to Dr. Denise Ferrera at for disposition and plan. (Amanda Horat) - Data Points Laboratory Results: Laboratory Results 03/21/17 14:25 03/21/17 14:25 Medications Given: Discontinued Medications Lorazepam (Ativan) 1 mg PO EDNOW ONE Stop: 03/21/17 20:37 Last Admin: 03/21/17 20:47 Dose: 1 mg Departure - Departure Disposition: [facility] IP Clinical Impression: Acute psychosis Condition: Fair Referrals: Florinda Kay MD [Primary Care Provider] - As per Instructions
[2017-03-21 14:35] LABS: % IMMATURE GRANULYOCYTES 0.5 % (0.0-1.1); ABSOLUTE IMMATURE GRANULOCYTES 0.04 10^3/uL (0.00-0.10); ADD DIFF? NO; ADD MORPH? NO; ADD SCAN? NO; ATYPICAL LYMPHOCYTE FLAG 20 (0-99); FRAGMENT RBC FLAG 0 (0-99); HEMATOCRIT 41.8 % (40.0-51.0); HEMOGLOBIN 13.8 g/dL (13.7-17.5); LEFT SHIFT FLG 0 (0-99); LIPEMIA HEMOLYSIS FLAG 80 (0-99); MEAN CELL HEMOGLOBIN 32.3 pg (27.9-34.1); MEAN CELL VOLUME 97.9 fL (81.5-99.8); MEAN PLATELET VOLUME 9.6 fL (8.7-11.7); PLATELET CLUMPS FLAG 0 (0-99); PLATELET COUNT 242 10^3/uL (150-400); RED BLOOD CELL COUNT 4.27 10^6/uL (4.40-6.38); RED CELL DISTRIBUTION WIDTH 14.1 % (11.5-15.2)
[2017-03-21 14:49] LABS: ANION GAP 12 mEq/L (8-16); CALCIUM 9.1 mg/dL (8.5-10.4); CARBON DIOXIDE 21 mEq/l (22-31); CHLORIDE 109 mEq/L (97-110); CREATININE 0.8 mg/dL (0.7-1.3); ETHANOL SERUM < 10 mg/dL (0-10); GLOMERULAR FILTRATION RATE > 60; GLUCOSE 78 mg/dL (70-100); POTASSIUM 4.3 mEq/L (3.5-5.2); SODIUM 142 mEq/L (134-144)
[2017-03-21] MEDS ORDERED: LORazepam 1 MG TAB PO ONE (20:36)
[2017-03-22] MEDS ORDERED: LORazepam 1 MG TAB PO ONE (09:16)
[2017-03-22] MEDS ORDERED: LORazepam 0.5 MG TAB PO PRN (14:08)
[2017-03-22] MEDS ORDERED: ACETAMINOPHEN 325 MG TAB PO PRN (14:08)
[2017-03-22] MEDS ORDERED: MAG HYDROX/AL HYDROX/SIMETH 30 ML UDCUP PO PRN (14:08)
[2017-03-22] MEDS ORDERED: MAGNESIUM HYDROXIDE 30 ML UDCUP PO PRN (14:08)
[2017-03-22] MEDS ORDERED: NICOTINE POLACRILEX 2 MG GUM B PRN (14:08)
[2017-03-22] MEDS ORDERED: RISPERIDONE 1 MG ODT TAB SL PRN (14:18)
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
[2017-03-22] MEDS: RISPERIDONE 1 MG ODT TAB SL SCH ×2 (19:26→20:30)
--- NOTE | 2017-03-22 23:22 | GCON ---
[f rep st] CONSULTATION DATE OF CONSULTATION: 03/22/2017 REFERRING PHYSICIAN: Michele Lu MD REASON FOR REFERRAL: Medical clearance for inpatient behavioral health stay. HISTORY OF PRESENT ILLNESS: This patient came to the [facility] Emergency Department on an M1 hold, brought by [place] [employer]. Per the emergency department report, he had left a voicemail for his mother, stating that he was suicidal, and apparently the police were called, who brought him to the emergency department. He was evaluated by the mental health team and admitted for further psychiatric care. He apparently had been noncompliant with his medications. He currently complains of feeling fatigued and says he has difficulty finding a place to sleep, as he is homeless. He is otherwise without acute complaints. PAST MEDICAL HISTORY: Schizoaffective disorder. PAST SURGICAL HISTORY: He has no history of surgeries. MEDICATIONS: He was noncompliant with psychiatric medications. ALLERGIES: Sulfa. SOCIAL HISTORY: He is homeless. He is a heavy tobacco smoker. His urine toxicology screen was non-negative for marijuana. FAMILY HISTORY: Noncontributory. REVIEW OF SYSTEMS: He reports he has overall a normal appetite, though sometimes he does not feel like eating. He denies nausea or vomiting. He has some constipation at present and says occasionally he has diarrhea. Sometimes he has limited access to food. He is not in pain. He denies cough or dyspnea, fevers or chills, and otherwise a 10-point review of systems is negative. PHYSICAL EXAMINATION: VITAL SIGNS: Blood pressure is 126/78, heart rate is 74 , respiratory rate is 16, oxygen saturation is 96% on room air, temperature is 36.8 degrees centigrade, his weight is 60.3 kg, for a body mass index of 18. GENERAL: This is an unkempt, thin man in bed, sits up on the edge of the bed for examination. Cooperative and in no acute distress. HEENT: Extraocular movements are intact. Pupils are equal, round, and reactive to light. Mucous membranes are moist. Dentition is in good condition. NECK: Supple with no thyromegaly. HEART: Regular rate and rhythm. He is somewhat tachycardic. There are no murmurs, rubs, or gallops auscultated. LUNGS: Clear to auscultation bilaterally. ABDOMEN: Soft, nontender, nondistended with normoactive bowel sounds. EXTREMITIES: There is no cyanosis, clubbing, or edema. NEUROLOGIC: He is alert and oriented x3. He has a flat affect. Cranial nerves 2-12 are grossly intact. There is no focal weakness. Sensation is intact to light touch. LABORATORY STUDIES: Drawn in the emergency department: CBC was overall within normal limits. He had a slight decrement to his red blood cell count of no clinical significance. Serum chemistry revealed a slightly low carbon dioxide of 21. Otherwise, renal function and electrolytes were within normal limits. TSH was suppressed at 0.241. Toxicology screen in the serum was negative for ethyl alcohol, and in the urine was non-negative for marijuana, but negative for other substances of abuse. ASSESSMENT/RECOMMENDATIONS: 1. Mental health issues pending further evaluation and management per Psychiatry and the mental health team. 2. Weight loss. Unclear whether this is related to reduced access to food. In the emergency department, he reported that he was hungry. Advise observing his oral intake. 3. Tobacco dependence syndrome. Encouraged smoking cessation. He reports that he does not want the nicotine replacement modalities that are available on the inpatient behavioral health unit. 4. Subclinical hyperthyroidism. I have ordered a free T4 and a free T3 to further investigate his low TSH. 5. I see no medical contraindications to this patient's continued stay on the inpatient behavioral health unit or to any psychiatric medications or procedures. Thank you very much for including me in the care of this patient, and please do not hesitate to contact me or the hospitalist service should there be need for further medical evaluation. /[id number]/MODL MTDD
[2017-03-23] MEDS ORDERED: LORazepam 2 MG/ML INJ IM PRN (09:13)
[2017-03-23] MEDS ORDERED: HALOPERIDOL LACT 5 MG/ML INJ IM PRN (09:13)
[2017-03-23] MEDS ORDERED: LORazepam 0.5 MG TAB PO PRN (09:18)
--- NOTE | 2017-03-23 10:24 | SOAPPROG ---
SOAP Progress Note Assessment/Plan: Assessment: Schizoaffective Disorder, bipolar type Cannabis use disorder Homeless Patient was admitted on M-1 hold for threatening suicide, paranoia, disorganization, and severe agitation. Patient appears manic and psychotic, refusing PO medication on unit, menacing staff, punching lyles, slamming doors, no insight. Patient has been non-compliant with outpatient treatment at [facility]. Plan: Patient notified he was referred to [facility] DAY ONE Offer Risperdal Mtab 1mg SL BID, if refused Haldol 5mg IM Ativan 1-2 mg PO PRN anxiety/agitation, if refused Ativan 2mg IM Completed short term certification paperwork (danger to self, grave disability) Safety/suicide precaution and assault awareness precaution 03/23/17 10:24 Subjective: "I don't want to fucking talk to you, give me the fucking phone" Patient non-cooperative with interview, hits wall and slams door to room when approached by Luisa Objective: Vital Signs Temp Pulse Resp BP Pulse Ox 36.5 C 65 14 117/64 98 03/23/17 06:00 03/23/17 06:00 03/23/17 06:00 03/23/17 06:00 03/23/17 06:00 Alert, tall thin WM, neal. Pacing, screaming profanity at staff, slamming doors, hitting lyles, disorganized thinking, rapid/loud speech. Unable to assess thought content or memory. No insight, impaired judgment. Follow up TFTs WNL Patient refused PO Risperdal Mtab 1mg last night and offer of PRN Risperdal Mtab 1mg and Ativan 1mg PO offered this morning. - Time Spent With Patient Time Spent With Patient: 15 - Pending Discharge Pending Discharge Within 24 Hours: No Pending Discharge Within 48 Hours: No ICD10 Worksheet Patient Problems: Problems Problem Status Onset Acute psychosis Acute Cannabis use disorder, severe, in early remission, dependence Acute
--- NOTE | 2017-03-23 15:37 | SOAPPROG ---
SOAP Progress Note Assessment/Plan: Assessment: * Moderately suppressed TSH with normal free T3 and free T4: Consistent with subclinical hyperthyroidism. Advise retesting TSH free T3 and free T4 in approximately 1 month. If abnormalities persist further evaluation would be indicated including test for thyroid stimulating immunoglobulin, and referral to an manager agency. 03/23/17 15:36 Subjective: Follow-up on labs regarding thyroid function. Objective: Vital Signs Temp Pulse Resp BP Pulse Ox 36.5 C 65 14 117/64 98 03/23/17 06:00 03/23/17 06:00 03/23/17 06:00 03/23/17 06:00 03/23/17 06:00 ICD10 Worksheet Patient Problems: Problems Problem Status Onset Acute psychosis Acute Cannabis use disorder, severe, in early remission, dependence Acute
[2017-03-23] MEDS: RISPERIDONE 1 MG ODT TAB SL SCH (20:03)
[2017-03-24] MEDS: RISPERIDONE 1 MG ODT TAB SL SCH (08:12)
[2017-03-24] MEDS ORDERED: LORazepam 2 MG/ML INJ IM PRN (11:31)
[2017-03-24] MEDS ORDERED: RISPERIDONE 1 MG ODT TAB SL PRN (11:31)
[2017-03-24] MEDS ORDERED: HALOPERIDOL LACT 5 MG/ML INJ IM PRN (11:31)
[2017-03-24] MEDS ORDERED: BENZTROPINE MESYLATE 1 MG TAB PO PRN (11:35)
--- NOTE | 2017-03-24 11:41 | SOAPPROG ---
SOAP Progress Note Assessment/Plan: Assessment: Schizoaffective Disorder, bipolar type Cannabis use disorder Homeless Patient was admitted on M-1 hold for threatening suicide, paranoia, disorganization, and severe agitation. Completed short term certification paperwork (danger to self, grave disability) On 03/23/17, patient appeared manic and psychotic, walking naked in hallway, refusing PO medication on unit, profane and verbally abusive and menacing staff , punching lyles, slamming doors. Patient continues to appear disorganized, irritable, paranoid. Plan: Patient notified he was referred to [facility], per [facility] EMED DAY TWO Increase Risperdal Mtab 2mg SL BID, if refused Haldol 5mg IM Ativan 2 mg PO PRN anxiety/agitation, if refused Ativan 2mg IM Reviewed diagnosis, risks/benefits of medications with patient Schedule Alleve 220mg BID for arthritis pain Safety/suicide precaution and assault awareness precaution Recheck thyroid function tests in one month 03/24/17 11:43 Subjective: "I haven't met with a doctor, you don't know my history, I don't need to be here , I don't want your medication, I was homeless and my neck and back hurt, there is a consipiracy of doctors and police and my family to keep me down" Patient is a poor historian. Refuses to discuss mood but later endorses feeling irritable. Reports he has no interest in psychiatric medications or treatment. Denies AH but describes being followed and harrassed by numerous people and agencies. Reports soreness in neck and back. Denies stiffness or tremors. Staff report patient received EMEDS yesterday (Haldol 5mg IM and Ativan 2mg IM) . Patient took PO risperdal 1mg MTAB last PM and this AM but later reported to numerous people that he wouldn't continue to take PO medications. Reportedly slept 8 hours last night. Objective: Vital Signs Temp Pulse Resp BP Pulse Ox 36.6 C 62 14 106/62 96 03/24/17 06:00 03/24/17 06:00 03/24/17 06:00 03/24/17 06:00 03/24/17 06:00 Alert WM, disheveled, unkempt neal, pacing halway with disorganized behavior. Speech: yelling. Affect irritable, hostile, paranoid. Mood 'I don't want to be here.' Denies SI or HI or AH but describes multiple paranoid delusions. Poor insight, impaired judgment - Pending Discharge Pending Discharge Within 24 Hours: No Pending Discharge Within 48 Hours: No ICD10 Worksheet Patient Problems: Problems Problem Status Onset Acute psychosis Acute Cannabis use disorder, severe, in early remission, dependence Acute
[2017-03-24] MEDS: NAPROXEN SODIUM 220 MG TAB PO SCH (19:35)
[2017-03-24] MEDS: RISPERIDONE 2 MG ODT TAB SL SCH (19:35)
[2017-03-25] MEDS: NAPROXEN SODIUM 220 MG TAB PO SCH ×2 (08:46→20:24)
[2017-03-25] MEDS: RISPERIDONE 2 MG ODT TAB SL SCH ×2 (08:46→20:19)
--- NOTE | 2017-03-25 17:06 | SOAPPROG ---
SOAP Progress Note Assessment/Plan: Assessment: Per Dr. Suero's note on 03/24/17: Schizoaffective Disorder, bipolar type Cannabis use disorder Homeless Patient was admitted on M-1 hold for threatening suicide, paranoia, disorganization, and severe agitation. Completed short term certification paperwork (danger to self, grave disability) On 03/23/17, patient appeared manic and psychotic, walking naked in hallway, refusing PO medication on unit, profane and verbally abusive and menacing staff , punching lyles, slamming doors. Patient continues to appear disorganized, irritable, paranoid. Plan: Patient notified he was referred to [facility], per P EMED DAY TWO Increase Risperdal Mtab 2mg SL BID, if refused Haldol 5mg IM Ativan 2 mg PO PRN anxiety/agitation, if refused Ativan 2mg IM 03/25/17 16:56 1. Patient agitated, verbally threatening staff, argumentative, would not take space or back away from staff when directed by security. 2. Will continue E-meds Day #3. Subjective: Met with patient, reviewed chart and discussed with staff. MD attempted to engage in conversation with patient multiple times throughout the day. As patient was finishing lunch, he told MD he had "a lot of questions I want to ask you." MD asked if patient would like to go somewhere with more privacy and discuss his questions. He look at peer seated at next table and said, "why don' t you talk to her now?" MD said he would like to answer patient's questions, but patient hesitated and then said, "I'm not finished eating." MD then agreed to meet with another patient and talk to Fer later, upon which Fre put his tray away and left dining area immediately. Later, MD stopped patient in hallway and asked to speak with him, patient said, "I can't...I'm going to clean out my room." A little while later, patient come out to nursing station and was yelling at MD saying, "why haven't you met with me, I have the right to talk to my doctor, I want to call my chief steward/stewardess." MD and staff attempted to calm patient down and talk quietly, however, patient kept escalating. He was yelling and was pointing at staff and verbally threatening. He would not take space or back away from MD and RN even when security came to help him de-escalate. Later when MD went to talk to patient after he had calmed down, he got up and walked away without making eye contact or responding to MD. Objective: Vital Signs Temp Pulse Resp BP Pulse Ox 36.8 C 84 12 98/55 L 96 03/25/17 06:00 03/25/17 06:00 03/25/17 06:00 03/25/17 06:00 03/25/17 06:00 MSE: Irritable, hostile, threatening, aggressive, uncooperative. Affect: Labile , hostile at times Mood: Angry TP: Disorganized, illogical TC: Paranoid, delusional, denies any AH/VH, no SI/HI Insight/Judgment: Impaired - Time Spent With Patient Time Spent With Patient: 20" - Pending Discharge Pending Discharge Within 24 Hours: No Pending Discharge Within 48 Hours: No ICD10 Worksheet Patient Problems: Problems Problem Status Onset Acute psychosis Acute Homeless Acute Schizoaffective disorder, bipolar type Acute Cannabis use disorder, severe, in early remission, dependence Acute
[2017-03-25] MEDS ORDERED: LORazepam 1 MG TAB PO PRN (17:10)
[2017-03-25] MEDS ORDERED: HALOPERIDOL LACT 5 MG/ML INJ IM PRN (17:12)
[2017-03-25] MEDS ORDERED: LORazepam 2 MG/ML INJ IM PRN (17:12)
[2017-03-25] MEDS ORDERED: RISPERIDONE 1 MG ODT TAB SL PRN (17:12)
[2017-03-25] MEDS: LORazepam 0.5 MG TAB PO SCH (20:20)
[2017-03-26] MEDS: LORazepam 0.5 MG TAB PO SCH ×4 (08:18→21:29)
[2017-03-26] MEDS: NAPROXEN SODIUM 220 MG TAB PO SCH ×2 (08:18→21:29)
[2017-03-26] MEDS: RISPERIDONE 2 MG ODT TAB SL SCH ×2 (08:19→21:29)
--- NOTE | 2017-03-26 13:22 | SOAPPROG ---
SOAP Progress Note Assessment/Plan: Assessment: Per Dr. Suero's note on 03/24/17: Schizoaffective Disorder, bipolar type Cannabis use disorder Homeless Patient was admitted on M-1 hold for threatening suicide, paranoia, disorganization, and severe agitation. Completed short term certification paperwork (danger to self, grave disability) On 03/23/17, patient appeared manic and psychotic, walking naked in hallway, refusing PO medication on unit, profane and verbally abusive and menacing staff , punching lyles, slamming doors. Patient continues to appear disorganized, irritable, paranoid. Plan: Patient notified he was referred to [facility], per P EMED DAY TWO Increase Risperdal Mtab 2mg SL BID, if refused Haldol 5mg IM Ativan 2 mg PO PRN anxiety/agitation, if refused Ativan 2mg IM 03/25/17 16:56 1. Patient agitated, verbally threatening staff, argumentative, would not take space or back away from staff when directed by security. 2. Will continue E-meds Day #3. 03/26/17 13:19 1. Patient has been sleeping in his room most of the day after receiving PO Ativan and PO Risperdal this AM. 2. Will continue E-meds Day #4 as patient is less agitated, hostile and less threatening to staff. Subjective: Patient is sleeping in bed after taking PO meds Ativan and Risperdal this AM. Staff report that he took PO meds without hesitating or going into a " meditation state" as he describes other mornings in order to make a decision whether to take meds or not. He has been quieter, calmer, and less agitated since getting Ativan in addition to Risperdal. No SI/HI. Objective: Vital Signs Temp Pulse Resp BP Pulse Ox 36.9 C 81 14 126/71 H 95 03/26/17 06:00 03/26/17 06:00 03/26/17 06:00 03/26/17 06:00 03/26/17 06:00 MSE: Affect: Less labile Mood: Less angry TP: Still disorganized and illogical TC: No AH/VH, no SI/HI, still paranoid Insight/Judgment: Impaired - Time Spent With Patient Time Spent With Patient: 5" - Pending Discharge Pending Discharge Within 24 Hours: No Pending Discharge Within 48 Hours: No ICD10 Worksheet Patient Problems: Problems Problem Status Onset Acute psychosis Acute Homeless Acute Schizoaffective disorder, bipolar type Acute Cannabis use disorder, severe, in early remission, dependence Acute
[2017-03-27 06:29] VITALS: BP 99/66; PULSE 53; RESP 12; TEMP 97.9; O2SAT 98
[2017-03-27] MEDS: NAPROXEN SODIUM 220 MG TAB PO SCH ×2 (08:37→22:06)
[2017-03-27] MEDS: LORazepam 0.5 MG TAB PO SCH ×3 (08:37→22:07)
[2017-03-27] MEDS: RISPERIDONE 2 MG ODT TAB SL SCH ×2 (08:37→22:06)
--- NOTE | 2017-03-27 09:23 | SOAPPROG ---
SOAP Progress Note Assessment/Plan: Assessment: Schizoaffective Disorder, bipolar type Cannabis use disorder Homeless Patient was admitted on M-1 hold for threatening suicide, paranoia, disorganization, and severe agitation. Completed short term certification paperwork (danger to self, grave disability) Patient appears more calm and appropriate but poor insight and illogical at times Patient cooperative with BID Risperdal Mtab Plan: Patient previously notified he was referred to [facility], per P Discontinue EMED order Continue Risperdal Mtab 2mg BID Reduce Ativan 0.5mg TID Reviewed diagnosis, risks/benefits of medications with patient Continue Alleve 220mg BID for arthritis pain Safety/suicide precaution and assault awareness precaution Recheck thyroid function tests in one month 03/27/17 09:23 Subjective: "I'm fine" Patient reports he is misdiagnosed with mental illness and wants to be discharged with parents. Reports no side effects from medication and is now willing to take Risperdal BID scheduled. Reports he is not depressed or suicidal. Endorses insomnia and irritability and agitation and disorganized thinking prior to admission. Denies current plans to hurt himself or anyone else. Unable to explain why he was admitted for what housing plan he would have if parents cannot provide him with housing. Staff report over weekend patient cooperated with EMED SL Risperdal Mtab but was irritable and hostile and paranoid. Patient started on Ativan 1mg TID for agitation. Objective: Vital Signs Temp Pulse Resp BP Pulse Ox 36.6 C 53 L 12 99/66 L 98 03/27/17 06:00 03/27/17 06:00 03/27/17 06:00 03/27/17 06:00 03/27/17 06:00 ALert WM, disheveled. Cooperative. No tremors or weakness. Speech RRR, brief yelling at times. Mood "I"m fine" affect irritable. Thoughts organized but tangential at times with poor detail. Denies SI or HI or AH. Some paranoia toward doctors and [facility]. Limited insight, questionable judgment. Staff report patient cooperative with EMED SL Risperdal Mtab 2mg BID and Ativan 1mg TID over weekend. - Time Spent With Patient Time Spent With Patient: 30 minutes - Pending Discharge Pending Discharge Within 24 Hours: No Pending Discharge Within 48 Hours: No ICD10 Worksheet Patient Problems: Problems Problem Status Onset Acute psychosis Acute Homeless Acute Schizoaffective disorder, bipolar type Acute Cannabis use disorder, severe, in early remission, dependence Acute
[2017-03-28] MEDS: LORazepam 0.5 MG TAB PO SCH (08:38)
[2017-03-28] MEDS: RISPERIDONE 2 MG ODT TAB SL SCH ×2 (08:38→21:18)
[2017-03-28] MEDS: NAPROXEN SODIUM 220 MG TAB PO SCH (08:39)
--- NOTE | 2017-03-28 12:15 | SOAPPROG ---
SOAP Progress Note Assessment/Plan: Assessment: Schizoaffective Disorder, bipolar type Cannabis use disorder Homeless Patient was admitted on M-1 hold for threatening suicide, paranoia, disorganization, and severe agitation. Completed short term certification paperwork (danger to self, grave disability) Patient appears more calm and appropriate but poor insight and illogical at times Patient cooperative with BID Risperdal Mtab Plan: Patient previously notified he was referred to [facility], per P Start [place] 300mg BID Continue Risperdal Mtab 2mg BID Reduce Ativan 0.5mg BID Reviewed diagnosis, risks/benefits of medications with patient Change Alleve 220mg BID PRN for arthritis pain Safety/suicide precaution and assault awareness precaution Recheck thyroid function tests in one month Spent 10 minutes on phone with mother explaining patients treatment plan ( patient signed [facility]) discussed that [facility] should be assisting patient in getting a payee for SS benefits, termite treater medicaid, and waiting list for residential treatment if patient agreeable Type letter to court requesting court ordered medications 03/27/17 09:23 03/28/17 12:15 Subjective: "I don't know why I'm here" Patient unable to explain why he is in the hospital and where he would go if not in the hospital. Unable to explain diagnosis and reasons for medication. Reports he is unwilling to go into a long term or take medication after discharge but wants to discharge with family back to [place]. Reports he doesn't agree that he has a mental illness and demands to know 'what system' of diagnosis is being used and what 'electric circuits' in the brain are firing and how that would be affected by medication. Denies feeling irritable and agitated despite yelling at M.D. Denies paranoia or violent or suicidal thoughts. Reports arthritis pain and stomach upset. Objective: Vital Signs Temp Pulse Resp BP Pulse Ox 36.6 C 53 L 12 99/66 L 98 03/27/17 06:00 03/27/17 06:00 03/27/17 06:00 03/27/17 06:00 03/27/17 06:00 Alert WM, disheveled. Mood "I don't know why I'm here" Speech RRR, loud yelling at times. Less hyperverbal than yesterday. Thought briefly organized with poor detail, tangential at times, occasional loose association. Denies SI or HI. Denies AH. paranoia toward treatment and medications. Limited insight. Impaired judgment. Staff report patient slept 7.5 hours. Was irritable, hostile, and disruptive in patent lounge and yelling at other patients to not take medication. Compliant with Risperdal Mtab and Ativan. - Time Spent With Patient Time Spent With Patient: 20min - Pending Discharge Pending Discharge Within 24 Hours: No Pending Discharge Within 48 Hours: No ICD10 Worksheet Patient Problems: Problems Problem Status Onset Acute psychosis Acute Homeless Acute Schizoaffective disorder, bipolar type Acute Cannabis use disorder, severe, in early remission, dependence Acute
[2017-03-28] MEDS ORDERED: NAPROXEN SODIUM 220 MG TAB PO PRN (12:17)
--- NOTE | 2017-03-28 14:13 | PDMN ---
Medical Necessity Medical necessity: Unable to reach Dr. Odonnell at [facility] [employer] at , called at 13:50 and 14:10.
--- NOTE | 2017-03-28 14:44 | PDMN ---
Medical Necessity Medical necessity: Spoke to Dr. Odonnell at [employer]. Patients stay approved for today.
[2017-03-28] MEDS ORDERED: LITHIUM CARBONATE 300 MG/5 ML UDSYR PO SCH (21:00)
[2017-03-28] MEDS ORDERED: LORazepam 0.5 MG TAB PO SCH (21:00)
--- NOTE | 2017-03-29 08:19 | SOAPPROG ---
SOAP Progress Note Assessment/Plan: Assessment: Schizoaffective Disorder, bipolar type Cannabis use disorder Homeless Patient was admitted on M-1 hold for threatening suicide, paranoia, disorganization, and severe agitation. Completed short term certification paperwork (danger to self, grave disability) , sent letter requesting court ordered medications Patient appears more calm and appropriate this AM but poor insight and residual paranoia and illogical thoughts; denies dangerous thoughts Patient cooperative with BID Risperdal Mtab but refused lithium Plan: If patient consistently agreeable to go to [facility] will discharge in next 1 -2 days if bed available Stop [place] Reduce Ativan 0.5mg PO QHS, continue Ativan 1mg PRN agitation Continue Risperdal Mtab 2mg BID. Patient refusing Risperdal Consta or Invega Sustenna injection Reviewed diagnosis, risks/benefits of medications with patient Continue Alleve 220mg BID PRN for arthritis pain Safety/suicide precaution and assault awareness precaution Recheck thyroid function tests in one month 03/29/17 08:19 03/29/17 08:22 Subjective: "I want to get out of here I don't trust the staff" Patient reports he refused [place] last night because he doesn't want to be on multiple medications. Reports sleeping well. Reports fear that multiple staff on unit and doctors are trying to harm him and that medications may harm him. Reports today he is willing to go to [facility]. Denies violent or suicidal thoughts. Denies any somatic complaints. Denies stiffness or tremors. Objective: Vital Signs Temp Pulse Resp BP Pulse Ox 36.6 C 53 L 12 99/66 L 98 03/27/17 06:00 03/27/17 06:00 03/27/17 06:00 03/27/17 06:00 03/27/17 06:00 Alert WM cooperative, disheveled, poor grooming. Speech RRR, loud at times. Mood 'tired' affect briefly irritable. Thoughts briefly organized with occasional loose association. Denies SI or HI or AH. Some paranoia toward doctors and medications. Poor insight. Questionable judgment. Staff reports patient refused lithium but compliant with Risperdal Mtab, slept overnight. - Time Spent With Patient Time Spent With Patient: 15 - Pending Discharge Pending Discharge Within 24 Hours: No Pending Discharge Within 48 Hours: No ICD10 Worksheet Patient Problems: Problems Problem Status Onset Homeless Acute Schizoaffective disorder, bipolar type Acute
[2017-03-29] MEDS: RISPERIDONE 2 MG ODT TAB SL SCH (09:11)
--- NOTE | 2017-03-29 16:03 | BDS ---
[f rep st] BEHAVIORAL HEALTH TRANSFER SUMMARY DATE OF ADMISSION: 03/22/2017 The patient will be transferred to [facility] on 03/29/17 IDENTIFICATION: This is a 31-year-old, single, white male who is currently homeless who has chronic, severe mental illness and multiple past psychiatric hospitalizations, who has been treated on the inpatient psychiatric unit at [facility] in the past and has previously been in outpatient treatment at [facility]. REASON FOR ADMISSION: The patient was placed on an M1 hold I believe in the emergency room. The patient was transported to the emergency room by police after the patient had made multiple suicidal communications to his extended family. In the emergency room, the patient reported, "I want to kill myself and stick my chon in a bag liner." In the emergency room, the patient was disorganized, irritable, paranoid, hostile, agitated, and received one mg of Ativan there. The ER M1 hold started on March 21, 2017. On March 22, 2017, the patient was transferred to the inpatient behavioral health unit. HOSPITAL COURSE: The patient on the inpatient unit initially was disheveled, tall with an unkempt neal. He was agitated, irritable, yelling with tangential thought process with loose associations. He had paranoia regarding doctors, medications, and different agencies in the community. He also had poor insight and was not able to explain how he would obtain food or long term if he were off the unit or not. The patient was started on emergency medications due to the fact that he was agitated, screaming, slamming the door, and hitting the lyles and disrupting the milieu and verbally abusive to staff and menacing the staff. After day one of emergency medications receiving Haldol 5mg and Ativan 2mg IM, the patient then complied with oral Risperdal M tab 2 mg twice a day and did appear to improve somewhat. He became less irritable, less agitated, but continued to have paranoia, disorganized thinking, and episodic loud, pressured speech. The patient was sometimes disruptive on the unit and would impulsively sing and dance and so appeared to be having some manic symptoms. He was offered lithium but refused to take this medication. The patient did receive Ativan 1 mg t.i.d. on March 23 for agitation, and that was slowly tapered on the following 3 days. The patient was continued on Risperdal Mtab 2mg BID for several days prior to transfer. The patient was notified of a plan for [facility] and [place] [employer] to transfer the patient to [facility]. The patient's mother from [place] was in town. She visited the patient on the unit several times. She agreed that her son was gravely disabled. The patient did sign a release of information for us to communicate with her. She was notified that the patient would be transferred to [facility]. I will also call the patient's court-appointed trial attorney, Bibiana Lott, at phone #[phone], to be notified of his transfer to [facility]. The patient had blood work in the emergency department. White blood cell count 8.7, hemoglobin 13.8, platelet count 242, hematocrit 41. His basic metabolic panel is normal with a creatinine of 0.8, glucose 78, sodium 142. Of note, the patient did have a screening blood test that showed a urine tox screen positive for cannabis. The patient was given information about the dangers of cannabis including paranoia and psychosis and anxiety. The patient had a suppressed TSH of 0.24. The patient had a follow up free T4 was that was normal. Free T3 was normal. The hospitalist consulted and evaluated the patient and reported that the patient may have subclinical hyperthyroidism, but no treatment was warranted at this time but his thyroid function tests should be rechecked in 1 month. On 03/29/17, the patient was agitated after a lengthy family meeting with his mother, prior to transfer to [facility] - the patient was loud and disruptive and menacing staff and received a brief emergency restraint with Haldol 5mg and Ativan 2mg given IM. CONDITION AT DISCHARGE: He is an alert, white male with a neal. He is thin. He is ambulatory without tremors or weakness. His speech is loud. It is less rapid and less pressured than previous. He has brief yelling at this M.D. He denies thoughts of hurting himself or others, but makes multiple paranoid statements about different people conspiring to harm him and is demanding a transfer to a private psychiatric hospital outside of [place]. He denies auditory hallucinations. He has bizarre content in his thoughts. His memory of recent events is poor likely due to disorganized thinking. His insight is poor. His judgment appears impaired. DISCHARGE/TRANSFER DIAGNOSES: Schizoaffective disorder bipolar type. Cannabis use disorder. Homelessness. Borderline hyperthyroidism. TRANSFER MEDICATIONS: Risperdal Mtab 2mg SL BID, Ativan 0.5mg QHS DISPOSITION: The patient will be transferred by ambulance to [facility]. The receiving physician at [facility] is Dr. Ray Yu. The nurses will call report. FOLLOWUP: The patient will receive treatment at [facility] until he is stable enough to go to [facility] which is a step-down unit for [facility]. LEGAL STATUS: The patient was initially on an M1 hold when he was admitted. I filed a short-term certification. On March 28, I filled out a letter for a request for court-ordered medications. The hearing for the certification of court-ordered medications is pending and will likely be on April 07 at 10: 30 a.m. /[id number]/MODL MTDD
[2017-03-29] MEDS ORDERED: HALOPERIDOL LACT 5 MG/ML INJ ONE (16:30)
[2017-03-29] MEDS ORDERED: LORazepam 2 MG/ML INJ ONE (16:31)
[2017-03-29] MEDS ORDERED: LORazepam 2 MG/ML INJ IM ONE (16:45)
[2017-03-29] MEDS ORDERED: HALOPERIDOL LACT 5 MG/ML INJ IM ONE (16:45)
[2017-03-29] MEDS ORDERED: LORazepam 0.5 MG TAB PO SCH (21:00)
== END 2017-03-29 17:25 | DRG 885 ==
LOC: BBEH 03-22 11:55
PROVIDERS: ADMIT Psychiatry & Neurology Psychiatry
DX: F25.9 Schizoaffective disorder, unspecified (principal); F17.200 Nicotine dependence, unspecified, uncomplicated; E05.90 Thyrotoxicosis, unspecified without thyrotoxic crisis or storm; F12.20 Cannabis dependence, uncomplicated; Z59.0 Homelessness; Z91.14 Patient's other noncompliance with medication regimen
CPT/HCPCS: 80305; 84481-90; G0480; J2060

== ENCOUNTER 2017-10-19 11:21 | Emergency (ER) | payer MEDICAID ==
[2017-10-19 12:03] LABS: PLATELET COUNT 254 10^3/uL (150-400)
--- NOTE | 2017-10-19 12:18 | EDPHY ---
H & P Stated Complaint: M1 - Personal History Current Tetanus/Diphtheria Vaccine: Yes Current Tetanus Diphtheria and Acellular Pertussis (TDAP): Yes Tetanus Vaccine Date: 2016 - Medical/Surgical History Hx Asthma: No Hx Chronic Respiratory Disease: No Hx Diabetes: No Hx Cardiac Disease: No Hx Renal Disease: No Hx Cirrhosis: No Hx Alcoholism: No Hx HIV/AIDS: No Hx Splenectomy or Spleen Trauma: No Other PMH: Chronic anxiety and Bipolar. Chronic back and neck pain, - Social History Smoking Status: Heavy smoker Time Seen by Provider: 10/19/17 11:36 HPI/ROS: CHIEF COMPLAINT: M1 HISTORY OF PRESENT ILLNESS: 32-year-old male history of schizoaffective disorder arrives on M1 hold for concerns over patient not taking his medication. There were concerns by his roommates about their safety as the patient has been exhibiting random escalation and explosive/verbally abusive tendencies. He is agitated not sleeping. PRIMARY CARE PROVIDER: REVIEW OF SYSTEMS: A ten point review of systems was performed and is negative with the exception of the items mentioned in the HPI PAST MEDICAL & SURGICAL HISTORY: Schizoaffective disorder. SOCIAL HISTORY:Denies alcohol or drug use. PHYSICAL EXAM (Prior to examination, patient consented to physical exam, hands were washed and my usual and customary physical exam procedures followed) 1) GENERAL: poorly kept, hyperalert , oriented. Appears to be in no acute distress. 2) HEAD: Normocephalic, atraumatic 3) HEENT: Pupils equal, round, reactive to light bilaterally. Sclera anicteric. 4) NECK: Full range of motion, no meningeal signs. 5) LUNGS: Clear auscultation bilaterally, no wheezes, no rhonchi, no retractions. 6) HEART: Regular rate and rhythm, no murmur, no heave, no gallop. 7) ABDOMEN: No guarding, no rebound, no focal tenderness, negative McBurney's, negative Garrett's, negative Rovsing's, negative peritoneal sign, 8) MUSCULOSKELETAL: Moving all extremities, no focal areas of tenderness, no obvious trauma. No peripheral edema or discoloration. 9) BACK: No CVA tenderness, no midline vertebral tenderness, no fluctuance, no step-off, no obvious trauma, no visual or palpable abnormality. 10) SKIN: No rash, no petechiae. 11) Psychiatric: Patient is oriented X 3, he is hyper alert. DIFFERENTIAL DIAGNOSIS: In no particular include but limited to psychosis, nico, medication noncompliance (Sarah Walden) Constitutional: Initial Vital Signs Temperature (C) 36.8 C 10/19/17 11:37 Heart Rate 89 10/19/17 11:37 Respiratory Rate 16 10/19/17 11:37 Blood Pressure 119/79 10/19/17 11:37 O2 Sat (%) 97 10/19/17 11:37 O2 Delivery Mode Room Air Allergies/Adverse Reactions: Sulfa (Sulfonamide Antibiotics) Allergy (Verified 03/16/17 22:29) Home Medications: Medication Instructions Recorded Benztropine Mesylate [Cogentin] 1 mg PO BID PRN tab 03/29/17 LORazepam [Ativan (*)] 0.5 mg PO HS tab 03/29/17 risperiDONE [Risperdal-M 2mg ODT 2 mg SL BID odt 03/29/17 (*)] [place] Carbonate 10/19/17 Medical Decision Making ED Course/Re-evaluation: This patient was turned over to me at change of shift. This patient has been evaluated and they are looking for placement. I will turn this patient over to Dr. Zaki Duarte at shift change. (Beto Madrigal) 0237: Patient has been accepted at [facility]. MARISOL Justin filled out. Appropriate trasnfer will be set up. (Zaki Duarte) 12:18 p.m.: The patient is on M1 hold. Will obtain laboratory studies and consult with mental health product management specialist. 5:00 p.m.: Care turned over to Dr. Beto Madrigal. Awaiting mental health evaluation. (Sarah Walden) - Data Points Laboratory Results: Laboratory Results 10/19/17 11:50 10/19/17 11:50 Departure - Departure Disposition: Acute Care Hospital Not [facility] Clinical Impression: Schizoaffective disorder Qualifiers: Schizoaffective disorder type: bipolar Qualified Code(s): F25.0 - Schizoaffective disorder, bipolar type Condition: Fair Referrals: Elzbieta Yeboah MD [Primary Care Provider] - As per Instructions
[2017-10-20 02:53] VITALS: BP 105/68
== END 2017-10-20 03:27 | disposition short-term general hospital (02) ==
DX: F25.0 Schizoaffective disorder, bipolar type (principal); F17.200 Nicotine dependence, unspecified, uncomplicated
CPT/HCPCS: 80305; G0480

== ENCOUNTER 2018-06-16 20:20 | Emergency (ER) | payer MEDICAID ==
[2018-06-16] MEDS ORDERED: OLANZapine DISINTEGR 10 MG TAB ONE (20:36)
--- NOTE | 2018-06-16 20:40 | EDPHY ---
H & P Source: Patient, RN/MD Exam Limitations: Clinical condition - Personal History Tetanus Vaccine Date: 2016 - Medical/Surgical History Hx Asthma: No Hx Chronic Respiratory Disease: No Hx Diabetes: No Hx Cardiac Disease: No Hx Renal Disease: No Hx Cirrhosis: No Hx Alcoholism: No Hx HIV/AIDS: No Hx Splenectomy or Spleen Trauma: No Other PMH: Chronic anxiety and Bipolar. Chronic back and neck pain, - Social History Smoking Status: Heavy smoker Time Seen by Provider: 06/16/18 20:39 HPI/ROS: HPI: This is a 32-year-old male who presents with Chief Complaint: M1 hold Location: psych Quality: M1 hold Duration: Unknown Signs and Symptoms: + auditory hallucinations, + visual hallucinations, suicidal ideation with a plan, homicidal ideation, + paranoia Timing: Acute on chronic Severity: Moderate to severe Context: Patient has a history of anxiety and bipolar disorder presents with police on M1 hold for being gravely disabled. Please were called in to the alf for patient being on shoulder doors. Upon contact with police patient began yelling that he needed 911 for being assaulted. He believes that the special police were different people and that he was out to be persecuted. He began on dressing in below freezing temperatures. He is extremely paranoid and having auditory and visual hallucinations. He reports that he has not been taking his lithium or Risperdal. Patient told me that he is no longer talking "to any aliens or human beings at the moment" and that he is not answering any further questions. Will not answer if he is taking any illegal substances. Modifying Factors: None Comment: ROS: A comprehensive 10 system review of systems is otherwise negative aside from elements mentioned in the history of present illness. MEDICAL/SURGICAL/SOCIAL HISTORY: Medical history: anxiety and Bipolar, Chronic back and neck pain Surgical history: Denies Social history: Heavy smoker. Family history noncontributory. CONSTITUTIONAL: Uncooperative, untidy, malodorous, adult white male, awake and alert, no obvious distress HEENT: Atraumatic and normocephalic, PERRL, EOMI. Nares patent; no rhinorrhea; no nasal mucosal edema. Tympanic membranes clear. Oropharynx clear, no exudate and moist pink mucosa. Airway patent. No lymphadenopathy. No meningismus. Cardiovascular: Normal S1/S2, regular rate, regular rhythm, without murmur rub or gallop. PULMONARY/CHEST: Symmetrical and nontender. Clear to auscultation bilaterally. Good air movement. No accessory muscle usage. ABDOMEN: Soft, nondistended, nontender, no rebound, no guarding, no peritoneal signs, no masses or organomegaly. No CVAT. EXTREMITIES: 2/2 pulses, strength 5/5, no deformities, no clubbing, no cyanosis or edema. NEUROLOGICAL: no focal neuro deficits. GCS 15. SKIN: Warm and dry, no erythema. no rash. Good capillary refill. PSYCH: Poor eye contact, + flight of ideas, tangential disorganized thought process, poor insight and judgment, + auditory hallucinations, + visual hallucinations, suicidal ideation with a plan, homicidal ideation, + paranoia ([place]) Constitutional: Initial Vital Signs Temperature (C) 36.8 C 06/16/18 20:44 Heart Rate 68 06/16/18 20:44 Respiratory Rate 19 06/16/18 20:44 Blood Pressure 118/79 06/16/18 20:44 O2 Sat (%) 92 06/16/18 20:44 O2 Delivery Mode Room Air Allergies/Adverse Reactions: Sulfa (Sulfonamide Antibiotics) Allergy (Verified 06/16/18 20:43) Home Medications: Medication Instructions Recorded Benztropine Mesylate [Cogentin] 1 mg PO BID PRN tab 03/29/17 LORazepam [Ativan (*)] 0.5 mg PO HS tab 03/29/17 risperiDONE [Risperdal-M 2mg ODT 2 mg SL BID odt 03/29/17 (*)] [place] Carbonate 10/19/17 Medical Decision Making ED Course/Re-evaluation: 2024: Vital signs reviewed and stable upon arrival. Agree with M1 hold for patient is gravely disabled. Given Zyprexa 10 mg upon arrival. Labs and UDS ordered including lithium level. 2118: Notified by RN that patient continued to be uncooperative and unable to obtain labs or urine. Yelling out sporadically. IM Haldol 10 mg and IM Ativan 2 mg given. 2222: Labs reviewed and grossly unremarkable. 5: Mental health recommends inpatient psychiatric admission. Looking for placement. Reports patient did well on Zyprexa during last admission. 0100: End of shift. Signed over to Dr. Ureña pending placement. This patient was seen under the supervision of my secondary supervising physician. I evaluated care for this patient independently. Discussed this patient with Dr. Madrigal who did not see the patient. (Gail Drew) Differential Diagnosis: Differential diagnosis includes but is not limited to major depression, anxiety disorder, schizophrenia, bipolar disorder, intoxicant use, suicidal ideation, psychosis, nico. (Gail Drew) Other Provider: [facility] care assumed from RAUL Drew pending placement. (John Ureña) Patient has been accepted at [facility]. ( Richard Zuniga) - Data Points Laboratory Results: Laboratory Results 06/16/18 21:40 06/16/18 21:40 06/16/18 06:45 Urine Opiates Screen NEGATIVE (NEGATIVE) Urine Barbiturates NEGATIVE (NEGATIVE) Ur Phencyclidine Scrn NEGATIVE (NEGATIVE) Ur Amphetamine Screen NEGATIVE (NEGATIVE) U Benzodiazepines Scrn NEGATIVE (NEGATIVE) Urine Cocaine Screen NEGATIVE (NEGATIVE) U Marijuana (THC) Screen NEGATIVE (NEGATIVE) Medications Given: Discontinued Medications Haloperidol Lactate (Haldol Injection) 10 mg IM EDNOW ONE Stop: 06/16/18 21:20 Last Admin: 06/16/18 21:20 Dose: 10 mg Lorazepam (Ativan Injection) 2 mg IM EDNOW ONE Stop: 06/16/18 21:20 Last Admin: 06/16/18 21:20 Dose: 2 mg Nicotine (Nicoderm Cq) 21 mg TD EDNOW ONE Stop: 06/17/18 10:34 Last Admin: 06/17/18 10:33 Dose: 21 mg Olanzapine (Zyprexa Zydis) 10 mg PO EDNOW ONE Stop: 06/16/18 21:05 Last Admin: 06/16/18 22:03 Dose: 10 mg Departure - Departure Disposition: Other Psych, Not [place] Clinical Impression: Bipolar affective psychosis Qualifiers: Active/Remission status: currently active Current bipolar episode type: manic Current episode severity: severe Psychotic features: with psychotic features Qualified Code(s): F31.2 - Bipolar disorder, current episode manic severe with psychotic features Condition: Fair Referrals: Patient,NotPresent [Primary Care Provider] - As per Instructions
[2018-06-16] MEDS ORDERED: OLANZapine DISINTEGR 10 MG TAB PO ONE (21:04)
[2018-06-16] MEDS ORDERED: HALOPERIDOL LACT 5 MG/ML INJ IM ONE (21:19)
[2018-06-16] MEDS ORDERED: HALOPERIDOL LACT 5 MG/ML INJ ONE (21:19)
[2018-06-16] MEDS ORDERED: LORazepam 2 MG/ML INJ IM ONE (21:19)
[2018-06-16] MEDS ORDERED: LORazepam 2 MG/ML INJ ONE (21:20)
[2018-06-16 21:49] LABS: PLATELET COUNT 305 10^3/uL (150-400)
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
[2018-06-17] MEDS ORDERED: OLANZapine DISINTEGR 5 MG TAB ONE (10:15)
[2018-06-17] MEDS ORDERED: NICOTINE 21 MG/24 HR PATCH TD ONE ×2 (10:25→10:33)
[2018-06-17 14:33] VITALS: BP 110/55
== END 2018-06-17 15:16 ==
LOC: EDUNIT#
DX: F31.2 Bipolar disorder, current episode manic severe with psychotic features (principal); F41.9 Anxiety disorder, unspecified; M54.5 Low back pain; M54.2 Cervicalgia; G89.29 Other chronic pain
CPT/HCPCS: 80305; G0480; J1630; J2060

== ENCOUNTER 2018-06-29 17:18 | Emergency (ER) | payer MEDICAID ==
[2018-06-29 17:33] VITALS: BP 127/87
[2018-06-29] MEDS ORDERED: ACETAMINOPHEN 325 MG TAB PO ONE (17:56)
--- NOTE | 2018-06-29 17:59 | EDPHY ---
H & P Stated Complaint: Fall, head ache/ blurry vision Time Seen by Provider: 06/29/18 17:20 HPI/ROS: CHIEF COMPLAINT: Fall, head injury HISTORY OF PRESENT ILLNESS: 32-year-old male presents after a fall with a head injury. He slipped and fell on icy pavement this afternoon. Immediate onset of severe headache and neck pain. No associated symptoms and no alleviating or aggravating factors. Long history of intermittent blurry vision. Vision is at baseline currently. REVIEW OF SYSTEMS: complete 10 point ROS reviewed and is negative except for the noted elements in the HPI - Personal History Tetanus Vaccine Date: 2016 - Medical/Surgical History Hx Asthma: No Hx Chronic Respiratory Disease: No Hx Diabetes: No Hx Cardiac Disease: No Hx Renal Disease: No Hx Cirrhosis: No Hx Alcoholism: No Hx HIV/AIDS: No Hx Splenectomy or Spleen Trauma: No Other PMH: Chronic anxiety and Bipolar. Chronic back and neck pain, - Social History Smoking Status: Heavy smoker Alcohol Use: Sober Drug Use: None - Physical Exam Exam: General Appearance: Alert, eyes closed, cooperative Head: Atraumatic, no swelling or tenderness Eyes: No conjunctival erythema, PERRLA, EOMI, no hyphema ENT, Mouth: No hemotympanum, no oral trauma, no bony tenderness Neck: mild paraspinous tenderness, ROM without pain Respiratory: No chest wall tenderness, lungs clear bilaterally Cardiovascular: Regular rate and rhythm Abdomen: Abdomen is soft and nontender Skin: No lacerations, no abrasions Back: No midline T/L/S tenderness Extremities: Pelvis is stable and nontender; no extremity tenderness or deformity, range of motion without pain Neurological: A&Ox3, normal motor function, normal sensory exam, cranial nerves intact Psychiatric: Odd affect Constitutional: Initial Vital Signs Temperature (C) 36.7 C 06/29/18 17:30 Heart Rate 97 06/29/18 17:30 Respiratory Rate 16 06/29/18 17:30 Blood Pressure 127/87 H 06/29/18 17:30 O2 Sat (%) 95 06/29/18 17:30 O2 Delivery Mode Room Air Allergies/Adverse Reactions: Sulfa (Sulfonamide Antibiotics) Allergy (Verified 06/16/18 20:43) Home Medications: Medication Instructions Recorded Benztropine Mesylate [Cogentin] 1 mg PO BID PRN tab 10/11/17 LORazepam [Ativan (*)] 0.5 mg PO HS tab 03/29/17 risperiDONE [Risperdal-M 2mg ODT 2 mg SL BID odt 03/29/17 (*)] [place] 10/19/17 Medical Decision Making - Diagnostics Imaging Results: Head CT 06/29/18 17:23 Impression: 1. Normal CT brain, without contrast. 2. No epidural or subdural hematoma. 3. Bilateral chronic sinus disease, similar to the previous study. 4. No definite skull fracture. Findings and recommendations discussed with Emergency Department physician, Yarely Ferrera M.D. at 1807 hours, on June 29, 2018. Final report concurs with initial preliminary interpretation. Cervical Spine CT 06/29/18 17:55 Impression: No evidence for cervical spine fracture. Results called and discussed with Dr. Yarely Ferrera at 06/29/2018 18:40. Imaging: Discussed imaging studies w/ continuous improvement intern Radiologist ED Course/Re-evaluation: This pt presents after a mechanical fall with no signs of injury on exam. History is difficult to obtain in this pt, as his story changed depending on provider. Initially, I decided to obtain CT head due to severe [place] and mechanism of injury. After he returned from CT, pt informed RN of severe neck pain. Repeat exam: diffuse midline tenderness without localization, limited ROM d/t pain. A c-collar was placed and CT neck ordered. CT head/neck negative. Cspine cleared by me after the negative CT scan. Pt declined visual acuity testing. No evidence of any other injuries. Pt ultimately d/c'd with [facility] to [facility]. Differential Diagnosis: includes though not limited to ICH, skull fx, spine fx, hemorrhage. - Data Points Medications Given: Discontinued Medications Acetaminophen (Tylenol) 650 mg PO EDNOW ONE Stop: 06/29/18 17:57 Last Admin: 06/29/18 18:50 Dose: Not Given Departure - Departure Disposition: Law Enforcement/Court/[facility] Clinical Impression: Head injury Qualifiers: Encounter type: initial encounter Qualified Code(s): S09.90XA - Unspecified injury of head, initial encounter Neck strain Qualifiers: Encounter type: initial encounter Qualified Code(s): S16.1XXA - Strain of muscle, fascia and tendon at neck level, initial encounter Condition: Good Instructions: Cervical Strain (ED), Head Injury (ED) Additional Instructions: Tylenol 650mg every 4 hours as needed for neck pain. Return for worsening symptoms or any concerns. Referrals: Mikki Romeo MD [Medical Doctor] - As per Instructions [facility],. [Clinic] - As per Instructions
== END 2018-06-29 19:02 ==
LOC: EDUNIT#
DX: S09.90XA Unspecified injury of head, initial encounter (principal); S16.1XXA Strain of muscle, fascia and tendon at neck level, initial encounter; F31.9 Bipolar disorder, unspecified; W00.0XXA Fall on same level due to ice and snow, initial encounter; Y92.480 Sidewalk as the place of occurrence of the external cause
CPT/HCPCS: L0172